=== PATIENT | female | born 1960 | race Caucasian/White ===

== ENCOUNTER 2017-10-06 14:14 | Inpatient (IN) | payer OTHER ==
[2017-10-06] MEDS ORDERED: ASPIRIN 81 MG CHEWABLE TABLET ONE (14:43)
[2017-10-06 14:51] LABS: Absolute Lymphocytes (CBC) 1.7 K/uL (0.7-4.9); Absolute Monocytes 0.6 K/uL (0.1-1.3); Absolute Neutrophil 3.3 K/uL (1.8-8.0); Basophils % 0.2 % (0-1.3); Eosinophils % 2.4 % (0-4.4); Hematocrit 40.2 % (36.0-45.0); Lymphocytes % 29.7 % (15.3-44.8); MCH 30.1 pg (27.0-35.0); MCV 87.8 fL (80-100); MPV 8.7 fL (7.6-11.3); Monocytes % 10.3 % (3.3-12.3); RBC Red Blood Cell Count 4.58 M/uL (3.86-4.86)
[2017-10-06 15:15] LABS: CKMB Creatine Kinase MB 2.3 ng/ml (0.3-4.0); Potassium 3.9 mEq/L (3.6-5.0)
[2017-10-06 15:21] LABS: Albumin 4.1 g/dL (3.2-5.5); Bilirubin Direct 0.1 mg/dL (0-0.2); Bilirubin Total 0.7 mg/dL (0.3-1.2); Protein, Total 7.2 g/dL (6.0-8.3)
[2017-10-06 15:37] LABS: Urine Blood NEGATIVE (NEG); Urine Glucose NEGATIVE (NEG); Urine Protein NEGATIVE (NEG); Urine Specific Gravity 1.015 (1.005-1.030); Urine pH 5.5 (5.0-7.0)
--- NOTE | 2017-10-06 15:45 | RAD REPORT ---
EXAM DESCRIPTION: RAD - Chest Single View - 10/06/2017 3:09 pm CLINICAL HISTORY: Chest pain COMPARISON: October 2015 TECHNIQUE: AP portable chest image was obtained 1441 hours . FINDINGS: Lungs are clear. Heart and vasculature are normal. No measurable pleural effusion and no p neumothorax. No gross bony abnormality seen. No acute aortic findings suspected. IMPRESSION: No acute cardiopulmonary process. No significant interval change.
--- NOTE | 2017-10-06 15:47 | EKG ---
Test Date: 2017-10-06 Test Time: 14:11:13 Assistant Bookkeeper: SYLVESTER MEASUREMENT RESULTS: Intervals: Rate: 79 VT: 154 QRSD: 86 QT: 398 QTc: 456 Salters: P: 51 VT: 154 QRS: -16 T: 82 INTERPRETIVE STATEMENTS: Normal sinus rhythm Possible Left atrial enlargement Anterior infarct, age undetermined Abnormal ECG Compared to ECG 11/14/2015 03:03:06 Sinus bradycardia no longer present Myocardial infarct finding still present Electronically Signed On 10-06-17 15:46:53 CDT by Ye Lainez
[2017-10-06] MEDS ORDERED: NITROGLYCERIN 0.4 MG/TAB SL ONE (16:47)
[2017-10-06] MEDS ORDERED: ACETAMINOPHEN 325 MG TABLET ONE (16:55)
--- NOTE | 2017-10-06 18:01 | RAD REPORT ---
EXAM DESCRIPTION: CT - Chest For Pe Angio - 10/06/2017 5:46 pm CLINICAL HISTORY: Mid sternal chest pain radiating to the back COMPARISON: Chest film same date, CT chest examination July 2015 TECHNIQUE: Dynamically enhanced 3 mm thick images of the chest were obtained during administration o f approximately 150mL Isovue 370 IV contrast. Coronal and oblique reconstruction images were generate d and reviewed. Exam utilizes a protocol to evaluate the pulmonary arterial tree. All CT scans are performed using dose optimization technique as appropriate and may include automated exposure control or mA/KV adjustment according to patient size. FINDINGS: No pulmonary emboli are identified. The aorta as imaged shows no acute or suspicious finding. No pericardial thickening or effusion. No infiltrate or mass in the lung parenchyma. No pleural effusion or pleural thickening. No mediastinal or hilar suspicious masses. No chest wall masses or abnormal axillary lymphadenopathy. No acute or destructive bone finding. IMPRESSION: No pulmonary emboli identified. No other significant or suspicious findings.
[2017-10-06] MEDS ORDERED: METOPROLOL TAR 50 MG TAB ONE (18:20)
[2017-10-06] MEDS ORDERED: ENOXAPARIN 100 MG/ML SYR SQ ONE (18:21)
--- NOTE | 2017-10-06 18:23 | ER ---
Nurse's Notes [facility] Name: Kelsi Bejarano Age: 57 yrs Sex: Female : 1960 Arrival Date: 10/06/2017 Time: 14:08 Bed 23 Private MD: Diagnosis: Chest pain, unspecified Presentation: 10/06 14:08 Presenting complaint: Patient states: mid-sternal chest pain and back pain that began today around 1230. Transition of care: patient was not received from another setting of care. Onset of symptoms was October 06, 2017. Initial Sepsis Screen: Does the patient meet any 2 criteria? No. Patient's initial sepsis screen is negative. Does the patient have a suspected source of infection? No. Patient's initial sepsis screen is negative. Care prior to arrival: None. 14:08 Method Of Arrival: Ambulatory 14:08 Acuity: KATY 2 aa5 Triage Assessment: 14:45 General: Appears in no apparent distress. uncomfortable, well groomed, well developed, kr2 well nourished, Behavior is cooperative, anxious. Pain: Complains of pain in thoracic area and chest Pain currently is 8 out of 10 on a pain scale. Quality of pain is described as burning, Pain began at 1300. Historical: - Allergies: 14:10 BUSPIRONE; 14:10 Cortisone; - Home Meds: 14:12 hydrocodone-acetaminophen 10-325 mg Oral tab [Active]; - PMHx: 14:12 Back pain; "I used to take blood pressure medicine as needed but not anymore"; - PSHx: 14:10 neeraj in right femur; bone fusion right leg; ; spinal surgery; - Immunization history:: Adult Immunizations unknown. - Social history:: Smoking status: Patient/guardian denies using tobacco. Screenin:45 Abuse screen: Denies threats or abuse. Denies injuries from another. Nutritional kr2 screening: No deficits noted. Tuberculosis screening: No symptoms or risk factors identified. Fall Risk None identified. Assessment: 14:38 Pain: Pain radiates to back Pain began 1300 today after eating. Cardiovascular: Heart kr2 tones S1 S2 Capillary refill < 3 seconds in bilateral fingers Patient's skin is warm and dry. Rhythm is sinus rhythm. 14:38 General: Appears in no apparent distress. uncomfortable, well groomed, well developed, kr2 well nourished. Neuro: Level of Consciousness is awake, alert, obeys commands, Oriented to person, place, time, situation. Respiratory: Airway is patent Respiratory effort is even, unlabored, Respiratory pattern is regular, symmetrical. GI: Abdomen is flat, non-distended. : No signs and/or symptoms were reported regarding the genitourinary system. Urine is clear, Denies burning with urination. EENT: Oral mucosa is moist. Derm: Skin is intact, is healthy with good turgor, Skin is pink, warm \\T\\ dry. Musculoskeletal: Circulation, motion, and sensation intact. Vital Signs: 14:08 Pulse 80; Resp 18 S; Temp 98.8(TE); Pulse Ox 95% on R/A; ch 14:09 BP 205 / 106; Weight 92.99 kg (R); Height 5 ft. 6 in. (167.64 cm) (R); Pain 7/10; ch 14:38 BP 196 / 101; Pulse 74; Resp 19; Pulse Ox 96% on R/A; kr2 15:00 BP 174 / 97; Pulse 71; Resp 17; Pulse Ox 99% on R/A; kr2 16:02 BP 171 / 79; Pulse 69; Resp 16; Pulse Ox 98% on R/A; kr2 17:00 BP 179 / 94; Pulse 69; Resp 16; Pulse Ox 96% on R/A; kr2 18:00 BP 181 / 93; Pulse 66; Resp 17; Pulse Ox 97% on R/A; kr2 19:00 BP 161 / 92; Pulse 64; Resp 16; Pulse Ox 97% on R/A; kr2 20:18 BP 174 / 85; Pulse 56; Resp 17; Pulse Ox 97% on R/A; kr2 21:15 BP 178 / 90; Pulse 60; Resp 17; Pulse Ox 100% on R/A; kr2 14:09 Body Mass Index 33.09 (92.99 kg, 167.64 cm) ED Course: 14:08 Patient arrived in ED. ch 14:08 Arm band placed on. ch 14:09 Triage completed. ch 14:14 Eliane Pastrana RN is Primary Nurse. kr2 14:19 Otto Anglin NP is PHCP. pm1 14:19 Julio Cesar Arita MD is Attending Physician. pm1 14:33 EKG done, by sleep lab technologist. reviewed by Julio Cesar Arita MD. dt2 14:40 Patient has correct armband on for positive identification. shelter monitor on. Pulse kr2 ox on. NIBP on. Door closed. Warm blanket given. Head of bed elevated. 14:43 X-ray completed. Portable x-ray completed in exam room. Patient tolerated procedure sw well. 14:45 Inserted saline lock: 20 gauge in left antecubital area, using aseptic technique. Blood kr2 collected. Patient maintains SpO2 saturation greater than 95% on room air. 15:08 XRAY Chest (1 view) In Process Unspecified. EDMS 17:46 CT Chest For PE Angio In Process Unspecified. EDMS 18:21 Naveen Swann MD is Hospitalizing Provider. pm1 21:17 No provider procedures requiring assistance completed. Patient admitted, IV remains in kr2 place. Administered Medications: 14:44 Drug: Aspirin Chewable Tablet 324 mg Route: PO; kr2 16:02 Follow up: Response: No adverse reaction kr2 16:10 Drug: Nitroglycerin 0.4 mg Route: Sublingual; kr2 16:50 Drug: Nitroglycerin 0.4 mg Route: Sublingual; kr2 18:31 Drug: Nitroglycerin 0.4 mg Route: Sublingual; kr2 19:00 Follow up: Response: No adverse reaction kr2 18:31 Drug: Lopressor (metoprolol TARTRATE) 50 mg Route: PO; kr2 19:30 Follow up: Response: No adverse reaction kr2 18:31 Drug: Lovenox 1 mg/kg Route: Sub-Q; Site: right lower abdomen; kr2 19:00 Follow up: Response: No adverse reaction kr2 Outcome: 18:22 Decision to Hospitalize by Provider. pm1 21:18 Admitted to Tele accompanied by tech, family with patient, via wheelchair, room 413, kr2 with chart, Report called to Gail 21:18 Condition: good 21:18 Instructed on the need for admit, Demonstrated understanding of instructions. 21:24 Patient left the ED. kr2 Signatures: Dispatcher [employer] EDMS Haven Spann, JOHN LOPEZ Tati Hull RN RN aa5 Keily Knox Patrick, JANET REAM CUTTER pm1 Eliane Pastrana, RN RN kr2 Melany Stephens dt2 Corrections: (The following items were deleted from the chart) 14:18 14:08 Acuity: KATY 3 ch aa5 16:08 16:07 Abuse screen: Denies threats or abuse. Denies injuries from another. kr2 kr2 16:08 16:07 Nutritional screening: No deficits noted. kr2 kr2 16:08 16:07 Tuberculosis screening: No symptoms or risk factors identified. kr2 kr2 16:08 16:07 Fall Risk None identified. kr2 kr2 21:17 14:38 Cardiovascular: Heart tones S1 S2 Capillary refill < 3 seconds in bilateral kr2 fingers Patient's skin is warm and dry. Rhythm is sinus rhythm kr2
--- NOTE | 2017-10-06 18:24 | EDPHYS ---
Physician Documentation [facility] Name: Kelsi Bejarano Age: 57 yrs Sex: Female : 1960 Arrival Date: 10/06/2017 Time: 14:08 Bed 23 Private MD: ED Physician Julio Cesar Arita HPI: 10/06 14:30 This 57 yrs old Female presents to ER via Ambulatory with complaints of Chest pm1 Pain. 14:30 The patient or guardian reports chest pain that is located primarily in the mid-sternal pm1 area. Onset: at 13:30. The pain does not radiate. Associated signs and symptoms: Pertinent positives: nausea, shortness of breath, Back pain between her shoulder blades, Pertinent negatives: abdominal pain, diaphoresis, palpitations. The chest pain is described as pressure to chest and burning sensation in the back. Duration: The patient or guardian reports a single episode, that is still ongoing. Modifying factors: The symptoms are alleviated by nothing. the symptoms are aggravated by nothing. Severity of pain: in the emergency department the pain is unchanged. The patient has not experienced similar symptoms in the past. The patient has not recently seen a physician, the patient's primary care provider is Dr. Swann. Historical: - Allergies: 14:10 BUSPIRONE; ch 14:10 Cortisone; ch - Home Meds: 14:12 hydrocodone-acetaminophen 10-325 mg Oral tab [Active]; ch - PMHx: 14:12 Back pain; "I used to take blood pressure medicine as needed but not anymore"; ch - PSHx: 14:10 neeraj in right femur; bone fusion right leg; ; spinal surgery; ch - Immunization history:: Adult Immunizations unknown. - Social history:: Smoking status: Patient/guardian denies using tobacco. ROS: 14:30 Constitutional: Negative for fever, chills, and weight loss, Eyes: Negative for injury, pm1 pain, redness, and discharge, ENT: Negative for injury, pain, and discharge, Neck: Negative for injury, pain, and swelling. 14:30 : Negative for injury, bleeding, discharge, and swelling, MS/Extremity: Negative for injury and deformity, Skin: Negative for injury, rash, and discoloration, Neuro: Negative for headache, weakness, numbness, tingling, and seizure. 14:30 Cardiovascular: Positive for chest pain, of the mid-sternal area, Negative for edema, orthopnea, palpitations. 14:30 Respiratory: Positive for shortness of breath. 14:30 Abdomen/GI: Positive for nausea, Negative for abdominal pain, vomiting, diarrhea. 14:30 Back: Positive for of the thoracic area. Exam: 14:30 Constitutional: This is a well developed, well nourished patient who is awake, alert, pm1 and in no acute distress. Head/Face: Normocephalic, atraumatic. Eyes: Pupils equal round and reactive to light, extra-ocular motions intact. Lids and lashes normal. Conjunctiva and sclera are non-icteric and not injected. Cornea within normal limits. Periorbital areas with no swelling, redness, or edema. ENT: Nares patent. No nasal discharge, no septal abnormalities noted. Tympanic membranes are normal and external auditory canals are clear. Oropharynx with no redness, swelling, or masses, exudates, or evidence of obstruction, uvula midline. Mucous membranes moist. Neck: Trachea midline, no thyromegaly or masses palpated, and no cervical lymphadenopathy. Supple, full range of motion without nuchal rigidity, or vertebral point tenderness. No Meningismus. Chest/axilla: Normal chest wall appearance and motion. Nontender with no deformity. No lesions are appreciated. Cardiovascular: Regular rate and rhythm with a normal S1 and S2. No gallops, murmurs, or rubs. No pulse deficits. Respiratory: Lungs have equal breath sounds bilaterally, clear to auscultation and percussion. No rales, rhonchi or wheezes noted. No increased work of breathing, no retractions or nasal flaring. Abdomen/GI: Soft, non-tender, with normal bowel sounds. No distension or tympany. No guarding or rebound. No evidence of tenderness throughout. Back: No spinal tenderness. No costovertebral tenderness. Full range of motion. Skin: Warm, dry with normal turgor. Normal color with no rashes, no lesions, and no evidence of cellulitis. MS/ Extremity: Pulses equal, no cyanosis. Neurovascular intact. Full, normal range of motion. 14:30 Neuro: Orientation: is normal, Mentation: is normal, Motor: is normal, moves all fours, Gait: is steady, at a normal pace, without difficulty. Vital Signs: 14:08 Pulse 80; Resp 18 S; Temp 98.8(TE); Pulse Ox 95% on R/A; ch 14:09 BP 205 / 106; Weight 92.99 kg (R); Height 5 ft. 6 in. (167.64 cm) (R); Pain 7/10; ch 14:38 BP 196 / 101; Pulse 74; Resp 19; Pulse Ox 96% on R/A; kr2 15:00 BP 174 / 97; Pulse 71; Resp 17; Pulse Ox 99% on R/A; kr2 16:02 BP 171 / 79; Pulse 69; Resp 16; Pulse Ox 98% on R/A; kr2 17:00 BP 179 / 94; Pulse 69; Resp 16; Pulse Ox 96% on R/A; kr2 18:00 BP 181 / 93; Pulse 66; Resp 17; Pulse Ox 97% on R/A; kr2 19:00 BP 161 / 92; Pulse 64; Resp 16; Pulse Ox 97% on R/A; kr2 20:18 BP 174 / 85; Pulse 56; Resp 17; Pulse Ox 97% on R/A; kr2 21:15 BP 178 / 90; Pulse 60; Resp 17; Pulse Ox 100% on R/A; kr2 14:09 Body Mass Index 33.09 (92.99 kg, 167.64 cm) ch MDM: 14:26 Patient medically screened. pm1 17:37 Data reviewed: vital signs. Data interpreted: Pulse oximetry: on room air is 98 %. pm1 Interpretation: normal. 17:42 Counseling: I had a detailed discussion with the patient and/or guardian regarding: the pm1 historical points, exam findings, and any diagnostic results supporting the discharge/admit diagnosis, lab results, the need for further work-up and treatment in the hospital. 18:18 Physician consultation: Naveen Swann MD was called at 18:20, was contacted at 18:20, pm1 regarding admission, patient's condition, and will see patient tomorrow, would like consultation with Dr. Caceres, would like further tests performed, Cardiolite stress test if second cardiac enzyme set is negative. 10/06 14:19 Order name: Basic Metabolic Panel; Complete Time: 15:47 pm1 10/06 14:19 Order name: BNP; Complete Time: 15:47 pm1 10/06 14:19 Order name: CBC with Diff; Complete Time: 15:47 pm1 10/06 14:19 Order name: Ckmb; Complete Time: 15:47 pm1 10/06 14:19 Order name: CPK; Complete Time: 15:47 pm1 10/06 14:19 Order name: LFT's; Complete Time: 15:47 pm1 10/06 14:19 Order name: Magnesium; Complete Time: 15:47 pm1 10/06 14:19 Order name: PT-INR; Complete Time: 15:47 pm1 10/06 14:19 Order name: Ptt, Activated; Complete Time: 15:47 pm1 10/06 14:19 Order name: Troponin (emerg Dept Use Only); Complete Time: 15:47 pm1 10/06 14:19 Order name: XRAY Chest (1 view); Complete Time: 15:47 pm1 10/06 15:31 Order name: Urine Dipstick--Ancillary (enter results); Complete Time: 15:47 bd 10/06 16:17 Order name: D-Dimer; Complete Time: 17:18 pm1 10/06 17:17 Order name: CT Chest For PE Angio; Complete Time: 18:02 pm1 10/06 14:19 Order name: Urine Test (obtain specimen); Complete Time: 16:02 pm1 10/06 14:19 Order name: EKG; Complete Time: 14:20 pm1 10/06 14:19 Order name: Cardiac monitoring; Complete Time: 14:37 pm1 10/06 14:19 Order name: EKG - Nurse/Tech; Complete Time: 14:37 pm1 10/06 14:19 Order name: IV Saline Lock; Complete Time: 14:37 pm1 10/06 14:19 Order name: Labs collected and sent; Complete Time: 14:37 pm1 10/06 14:19 Order name: O2 Per Protocol; Complete Time: 14:37 pm1 10/06 14:19 Order name: O2 Sat Monitoring; Complete Time: 14:37 pm1 10/06 14:19 Order name: Urine Dipstick-Ancillary (obtain specimen); Complete Time: 16:02 pm1 Administered Medications: 14:44 Drug: Aspirin Chewable Tablet 324 mg Route: PO; kr2 16:02 Follow up: Response: No adverse reaction kr2 16:10 Drug: Nitroglycerin 0.4 mg Route: Sublingual; kr2 16:50 Drug: Nitroglycerin 0.4 mg Route: Sublingual; kr2 18:31 Drug: Nitroglycerin 0.4 mg Route: Sublingual; kr2 19:00 Follow up: Response: No adverse reaction kr2 18:31 Drug: Lopressor (metoprolol TARTRATE) 50 mg Route: PO; kr2 19:30 Follow up: Response: No adverse reaction kr2 18:31 Drug: Lovenox 1 mg/kg Route: Sub-Q; Site: right lower abdomen; kr2 19:00 Follow up: Response: No adverse reaction kr2 Disposition: 22:39 Co-signature as Attending Physician, Julio Cesar Arita MD I agree with the assessment and kdr plan of care. Disposition: 10/06/17 18:22 Hospitalization ordered by Naveen Swann for Observation. Preliminary diagnosis is Chest pain, unspecified. - Bed requested for Telemetry/MedSurg (observation). - Status is Observation. kr2 - Condition is Stable. - Problem is new. - Symptoms have improved. UTI on Admission? No Signatures: Dispatcher [employer] EDMS Cha Padilla Christina, RN RN Julio Cesar Arita MD MD [facility] Otto Anglin, SHRINKER SHRINKER pm1 Eliane Pastraan RN RN kr2 Corrections: (The following items were deleted from the chart) 18:52 18:22 Hospitalization Ordered by Naveen Swann MD for Observation. Preliminary bd diagnosis is Chest pain, unspecified. Bed requested for Telemetry/MedSurg (observation). Status is Observation. Condition is Stable. Problem is new. Symptoms have improved. UTI on Admission? No. pm1 21:24 18:52 10/06/2017 18:22 Hospitalization Ordered by Naveen Swann MD for Observation. kr2 Preliminary diagnosis is Chest pain, unspecified. Bed requested for Telemetry/MedSurg (observation). Status is Observation. Condition is Stable. Problem is new. Symptoms have improved. UTI on Admission? No. bd
[2017-10-06] MEDS ORDERED: ONDANSETRON 4 MG/2 ML VIAL IV PRN (21:32)
[2017-10-06] MEDS ORDERED: ACETAMINOPHEN 500 MG TAB PO PRN (21:32)
[2017-10-06] MEDS: MORPHINE 4 MG/ML SYR IV PRN (22:23)
[2017-10-07] MEDS: MORPHINE 4 MG/ML SYR IV PRN ×2 (02:24→06:50)
[2017-10-07 04:45] LABS: Absolute Lymphocytes (CBC) 2.3 K/uL (0.7-4.9); Absolute Monocytes 0.5 K/uL (0.1-1.3); Basophils % 0.4 % (0-1.3); Hematocrit 39.4 % (36.0-45.0); MCH 29.7 pg (27.0-35.0); MCV 89.8 fL (80-100); MPV 9.3 fL (7.6-11.3); Monocytes % 8.9 % (3.3-12.3); RBC Red Blood Cell Count 4.39 M/uL (3.86-4.86)
[2017-10-07 05:24] LABS: Potassium 4.4 mEq/L (3.6-5.0)
[2017-10-07] MEDS ORDERED: REGADENOSON 0.4 MG/5 ML SYR IV ONE (07:32)
[2017-10-07] MEDS: HYDROCODONE/APAP 7.5/325 MG TAB PO PRN ×3 (09:13→17:17)
[2017-10-07] MEDS: ASPIRIN EC 81 MG TAB PO SCH (09:13)
--- NOTE | 2017-10-07 11:40 | RAD REPORT ---
EXAM DESCRIPTION: NM - Rest Stress Cardiac Imaging - 10/07/2017 11:26 am CLINICAL HISTORY: Chest pain COMPARISON: None. TECHNIQUE: The patient was administered approximately 10 mCi of Tc 99m Sestamibi prior to resting SP ECT imaging of the heart. The patient was then administered approximately 30 mCi of Tc 99m Sestamibi following exercise or pharmacologic stress. Multiplanar SPECT images were reviewed. FINDINGS: The end diastolic volume is 80 ml, the end systolic volume is 23 ml, and the ejection frac tion is 71 %. Small to moderate area diminished activity is seen in the mid in apex portion of the anterior wall on stress imaging. This is absent or less pronounced on the rest sequencing. No other area of stress pe rfusion abnormality. IMPRESSION: Small to moderate area of stress ischemia anterior wall. Ventricular volume and ejection fraction are normal range.
--- NOTE | 2017-10-07 12:55 | ECHO ---
HEIGHT: 5 ft 6 in WEIGHT: 219 lb 2 oz DATE OF STUDY: 10/07/[address]: Otto Anglin NP 2-DIMENSIONAL: YES M.MODE: YES DOPPLER: YES COLOR FLOW: YES TDS: YES PORTABLE: NO DEFINITY: NO BUBBLE STUDY: NO DIAGNOSIS: CHEST PAIN CARDIAC HISTORY: CATHERIZATION: NO SURGERY: NO PROSTHETIC VALVE: NO PACEMAKER: NO MEASUREMENTS (cm) DIASTOLIC (NORMALS) SYSTOLIC (NORMALS) IVSd 1.3 (0.6-1.2) LA Diam 3.4 (1.9-4.0) LVEF 69% LVIDd 4.0 (3.5-5.7) LVIDs 2.5 (2.0-3.5) %FS 38% LVPWd 1.4 (0.6-1.2) Ao Diam 2.3 (2.0-3.7) 2 DIMENSIONAL ASSESSMENT: RIGHT ATRIUM: NORMAL LEFT ATRIUM: DILATED RIGHT VENTRICLE: NORMAL LEFT VENTRICLE: LEFT VENTRICULAR HYPERTROPHY TRICUSPID VALVE: NORMAL MITRAL VALVE: NORMAL PULMONIC VALVE: NORMAL AORTIC VALVE: NORMAL PERICARDIAL EFFUSION: NONE AORTIC ROOT: NORMAL LEFT VENTRICULAR WALL MOTION: NORMAL. DOPPLER/COLOR FLOW: MILD MITRAL AND TRICUSPID REGURGITATION. NORMAL RIGHT VENTRICULAR SYSTOLIC PRESSURE. COMMENTS: NORMAL LEFT VENTRICULAR EJECTION FRACTION. LEFT VENTRICULAR HYPERTROPHY. DILATED LEFT ATRIUM. MILD MITRAL AND TRICUSPID REGURGITATION. TECHNOLOGIST: MATTHEW SANCHEZ
--- NOTE | 2017-10-07 13:09 | TREADMILL ---
70% H.R.: 113 85% H.R.: 138 90% H.R.: 146 100% H.R.: 162 DX: CHEST PAIN Date of Study: 10/07/17 Ht: 5 6 Wt: 219 lb 2 oz Consulting Physician: LASHAE MEDICATIONS: TYLENOL, NOROC, ASPIRIN, ZOFRAN. HISTORY: 56 YEAR OLD FEMALE WITH COMPLAINTS OF CHEST PAIN. HISTORY OF BACK PAIN. PHYSICIAL EXAMINATION: RESTING B.P.: 186/96 RESTING H.R.: 57 RESTING EKG: ANTERIO MYOCARDIAL INFARCTION, SINUS BRADYCARDIA PROTOCOL: DEYA CARDIOLITE EXERCISE TIME: 8:30 MAXIMUM HEART RATE: 142 % OF PREDICTED B.P. AT PEAK STRESS: 222/75 H.R. AT 1 MINUTE POST EXERCISE: 126 IMPRESSION: DEYA STOPPED DUE TO FATIGUE AND TARGET HEART RATE REACHED. NO CHEST PAIN. OCCASIONAL PREMATURE VENTRICULAR COMPLEXES NOTED DURING RECOVERY. NO VENTRICULAR TACHYCARDIA, NO SUPRA VENTRICULAR TACHYCARDIA. NO ST DEPRESSION DURING STRESS .
[2017-10-07] MEDS: Morphine 2 MG/2 ML SYR IV PRN (20:22)
[2017-10-08] MEDS: Morphine 2 MG/2 ML SYR IV PRN ×5 (00:18→20:22)
--- NOTE | 2017-10-08 01:11 | HP ---
Date of Admission: 10/06/2017 Entrance Complaint: Chest pain. History Of Present Illness: The patient states she was at work, not doing anything unusual for her. She started having central chest pain associated with shortness of breath and pain in the upper port ion of her back, became diaphoretic, so brought to the emergency room where a cardiac evaluation was made. Past History: The patient has no prior cardiac problems. Has had back problems for a number of year s and is on analgesic for this via a pain physician. Family History: Hypertension remotely. Social History: The patient has not had any alcohol for a number of years now and has not smoked rec ently either. Physical Examination: General: The patient is a slightly uncomfortable, slightly overweight, middle-aged female. Vital Signs: Stable vital signs. Head and Neck: Normocephalic. Pupils are equal, round, and reactive to light and accommodation. Fu ndi negative. Trachea midline. Thyroid not palpable. ENT: Negative. Chest: Clear to P and A. Cardiovascular: PMI in midclavicular line. Heart sounds normal. Peripheral pulses are present and equal bilaterally. Abdomen: No organomegaly. Bowel sounds present. Extremities: Good tone and movement bilaterally. Reflexes physiologic. Rectal/Pelvic: Deferred. Impression: Chest pain, probable cardiac origin, hypertension controlled, borderline mild obesity. Plan: The patient will be admitted for cardiac monitoring and cardiac catheterization if the enzymes are negative we ordered and a cardiac consultation will be obtained. HR/MODL Voice ID: [id number]
--- NOTE | 2017-10-08 01:11 | PN ---
Date of Progress Note: 10/07/2017 Subjective: The patient feels much better today. She has minimal amount of discomfort; however, her stress test was positive and therefore being scheduled for a heart catheterization. Depending on th errol results, we will determine the next steps. Her enzymes are normal and vital signs are stable. HR/MODL Voice ID: [id number] Report ID: [id number]
--- NOTE | 2017-10-08 02:05 | CON ---
Date of Consultation: 10/07/[address] Swann for chest pain on 10/06/2017. I saw the patient on 10/07/2017. History Of Present Illness: Ms. Bejarano is a 57-year-old white woman who really has no significant past medical history. Had some fairly worrisome type of chest pain with substernal chest pressure ra diating to the back and shoulders with some nausea and diaphoresis, but no vomiting. Denied PND, ort hopnea, pedal edema, palpitations, or syncope. Her EKG, chest x-ray, troponin, and BNPs was all nega tive. Echo and Cardiolite were pending. Past Medical History: As stated above. Allergies: NONE. Review of Systems: Negative. Social History: Negative. Family History: Positive for heart disease. Medications: At home are none. Physical Examination: Vital Signs: Stable. She was afebrile. HEENT: Negative. Neck: Supple without any bruit, lymphadenopathy, JVD, or thyromegaly. Chest: Clear to auscultation and percussion. Cardiac: Revealed a regular rhythm and rate without any murmurs, gallops, or rubs. Abdomen: Benign. Extremities: Revealed no clubbing, cyanosis, or edema. Diagnostic Data: All normal. Impression And Plan: Ms. Bejarano does not have much in way of risk factors except for her family hi story, but her symptoms are fairly worrisome and could possibly be angina. We will see what her echo cardiogram and a stress Cardiolite show today before making any further decisions. Meanwhile, I woul d definitely keep her on aspirin, beta blockers, Lovenox, and we will see what her workup shows befor e starting on any statin. The case was discussed with Dr. Swann. CARRI/TAWANA Voice ID: [id number] Report ID: [id number]
[2017-10-08 05:39] VITALS: BMI 35.3
[2017-10-08] MEDS ORDERED: NA CHLORIDE 0.9% 1,000 ML ONE (05:47)
[2017-10-08] MEDS ORDERED: ATROPINE SULF 1 MG/10 ML SYR IV ONE (06:07)
[2017-10-08] MEDS ORDERED: NA CHLORIDE 0.9% 500 ML ONE (06:07)
[2017-10-08] MEDS ORDERED: LIDOCAINE 1% 20 ML MDV ONE (06:07)
[2017-10-08] MEDS ORDERED: NA CHLORIDE 0.9% 50 ML ONE (06:08)
[2017-10-08] MEDS: ASPIRIN EC 81 MG TAB PO SCH (06:14)
[2017-10-08] MEDS ORDERED: ONDANSETRON 4 MG/2 ML VIAL ONE (06:45)
[2017-10-08] MEDS ORDERED: FENTANYL CITR 100 MCG/2 ML ONE (06:45)
[2017-10-08] MEDS ORDERED: MIDAZOLAM HCL 2 MG/2 ML INJ ONE ×2 (06:45→07:01)
[2017-10-08] MEDS ORDERED: NITROGLYCERIN 100 MCG/ML SYR (for cath lab use only) IV ONE (07:14)
[2017-10-08] MEDS ORDERED: NITROGLYCERIN/D5W 25 MG/250 ML BTL IV ONE (07:14)
[2017-10-08] MEDS ORDERED: PRASUGREL (EFFIENT) 10 MG TAB ONE (07:29)
[2017-10-08] MEDS ORDERED: ACETAMINOPHEN 325 MG TABLET ONE (07:34)
[2017-10-08] MEDS ORDERED: ZOLPIDEM TARTRATE 10 MG TABLET PO PRN (08:59)
[2017-10-08] MEDS ORDERED: ACETAMINOPHEN 325 MG TABLET PO PRN (09:00)
[2017-10-08] MEDS ORDERED: NA CHLORIDE 0.9% 1,000 ML IV SCH (09:00)
[2017-10-08] MEDS ORDERED: NITROGLYCERIN 0.4 MG/TAB SL PRN (09:00)
[2017-10-08] MEDS: HYDROCODONE/APAP 7.5/325 MG TAB PO PRN ×4 (09:13→23:30)
[2017-10-08] MEDS ORDERED: HYDRALAZINE HCL 20 MG/ML VIAL IV ONE (12:45)
--- NOTE | 2017-10-08 13:13 | P.PN ---
Date of Service: 10/08/17 S: Pt seen and examined at bedside. Doing well overall. Currently status post heart catheterization with stent placement. Complains of having some side pain but other than that no other complaints to offer at this time PE: Vitals Temp Pulse Resp BP Pulse Ox 98.1 F 55 18 193/81 H 96 10/08/17 09:00 10/08/17 12:53 10/08/17 09:00 10/08/17 12:53 10/08/17 04:00 Gen: No acute distress noted. Alert and oriented x3 Cardiac: Regular rate and rhythm. S1-S2 heard normally Chest: No wheezing rales or rhonchi noted normal breath sounds. Abdomen: Nontender nondistended soft positive bowel sounds Extremity: No edema noted positive pulses in all 4 extremities. Cardiac catheterization site C/D/I no hematoma noted Lab: WNL Assessment/Plan: 1. ACS r/o: S/p Cardiac Cath with stent placement. ASA, effient, BB and lipitor on board 2. Obesity BMI 35.9: Calorie intake high 3. HTN: Stable Dispo: DC in 24hr if doing well
[2017-10-08] MEDS ORDERED: DIPHENHYDRAMINE 50 MG/ML VIAL IV ONE (14:03)
[2017-10-08] MEDS: DOCUSATE NA 100 MG CAP PO SCH (20:20)
[2017-10-08] MEDS ORDERED: ATORVASTATIN 80 MG TAB PO SCH (21:00)
[2017-10-09] MEDS: Morphine 2 MG/2 ML SYR IV PRN ×2 (01:28→05:34)
[2017-10-09] MEDS ORDERED: METOPROLOL XL 25 MG TAB PO SCH (06:00)
[2017-10-09 06:01] LABS: Absolute Lymphocytes (CBC) 2.7 K/uL (0.7-4.9); Absolute Monocytes 0.7 K/uL (0.1-1.3); Absolute Neutrophil 4.5 K/uL (1.8-8.0); Basophils % 0.5 % (0-1.3); Eosinophils % 2.5 % (0-4.4); Hematocrit 41.7 % (36.0-45.0); Lymphocytes % 32.7 % (15.3-44.8); MCH 29.9 pg (27.0-35.0); MPV 8.9 fL (7.6-11.3); Monocytes % 8.9 % (3.3-12.3); RBC Red Blood Cell Count 4.64 M/uL (3.86-4.86)
[2017-10-09 06:30] LABS: Potassium 4.5 mEq/L (3.6-5.0)
[2017-10-09] MEDS: HYDROCODONE/APAP 7.5/325 MG TAB PO PRN (07:17)
[2017-10-09 08:38] VITALS: BP 147/77; TEMP 97.2
[2017-10-09] MEDS ORDERED: PRASUGREL (EFFIENT) 10 MG TAB PO SCH (09:00)
[2017-10-09] MEDS ORDERED: ASPIRIN 81 MG CHEWABLE TABLET PO SCH (09:00)
[2017-10-09] MEDS: DOCUSATE NA 100 MG CAP PO SCH (09:11)
[2017-10-09 09:44] VITALS: O2SAT 97
--- NOTE | 2017-10-09 11:13 | P.DS ---
Admission Date: 10/07/17 Discharge Date: 10/09/17 Disposition: ROUTINE DISCHARGE Discharge Condition: GOOD Reason for Admission: Chest pain Consultations: Cardiology Procedures: heart Catherization - Problems (1) Chest pain Onset Date: 10/07/17 Status: Acute Qualifiers: Chest pain type: other chest pain Qualified Code(s): R07.89 - Other chest pain; R07.8 - Other chest pain Brief History of Present Illness: See HPi Hospital Course: Overall during the hospital stay patient remained stable The patient was initially admitted to the hospital for chest pain. Cardiology was consulted who recommended the patient get a heart catheterization done due to high risk here in the hospital. Patient had a cardiac catheterization done day 2 and was found to have blockage and had 2 stent placement. Patient tolerated the procedure well and no acute events were noted after the procedure. Patient at that time was started on metoprolol 50 mg, effient, aspirin, Lipitor 80 mg as well. Patient was then discharged home under stable condition and was asked to follow up with cardiology in about 2 weeks post discharge. Vital Signs/Physical Exam: Temp Pulse Resp BP Pulse Ox 97.2 F 60 18 147/77 H 97 10/09/17 08:00 10/09/17 08:00 10/09/17 08:00 10/09/17 08:00 10/09/17 08:00 General: Alert, In no apparent distress HEENT: Atraumatic, PERRLA, EOMI Neck: Supple, JVD not distended Respiratory: Clear to auscultation bilaterally, Normal air movement Cardiovascular: Regular rate/rhythm, Normal S1 S2 Gastrointestinal: Normal bowel sounds, No tenderness Musculoskeletal: No tenderness Integumentary: No rashes Neurological: Normal speech, Normal tone, Normal affect Lymphatics: No axilla or inguinal lymphadenopathy Laboratory Data at Discharge: WBC 8.2 K/uL (4.3-10.9) D 10/09/17 05:29 Hgb 13.9 g/dL (12.0-15.0) 10/09/17 05:29 Hct 41.7 % (36.0-45.0) 10/09/17 05:29 Plt Count 164 K/uL (152-406) 10/09/17 05:29 PT 11.8 SECONDS (9.5-12.5) 10/06/17 14:35 INR 1.00 10/06/17 14:35 APTT 27.9 SECONDS (24.3-36.9) 10/06/17 14:35 Sodium 139 mEq/L (135-145) 10/09/17 05:29 Potassium 4.5 mEq/L (3.6-5.0) 10/09/17 05:29 BUN 21 mg/dL (6-20) H 10/09/17 05:29 Creatinine 0.93 mg/dL (0.44-1.00) 10/09/17 05:29 Glucose 91 mg/dL (65-120) 10/09/17 05:29 Magnesium 2.0 mg/dL (1.8-2.5) 10/06/17 14:35 Total Bilirubin 0.7 mg/dL (0.3-1.2) 10/06/17 14:35 AST 47 IU/L (10-42) H 10/06/17 14:35 ALT 59 IU/L (10-60) 10/06/17 14:35 Alkaline Phosphatase 66 IU/L (42-121) 10/06/17 14:35 Troponin I < 0.03 ng/mL (<0.03) 10/07/17 03:32 B-Natriuretic Peptide 34 pg/ml (<=100) 10/06/17 14:35 Triglycerides 139 mg/dL (35-160) 10/09/17 05:29 Cholesterol 153 mg/dL (<200) 10/09/17 05:29 HDL Cholesterol 34 mg/dL (29-89) 10/09/17 05:29 Cholesterol/HDL Ratio 4.50 10/09/17 05:29 Home Medications: Hydrocodone/Acetaminophen [Hydrocodone-Acetamin 7.5-325] 325 mg PO BID 10/06/17 Aspirin Chewable [Aspirin Chewable*] 81 mg PO DAILY #30 tab.chew 10/09/17 Atorvastatin Calcium [Lipitor] 80 mg PO BEDTIME #30 tab 10/09/17 Metoprolol Succinate [Toprol Xl] 50 mg PO DAILY #30 tab 10/09/17 Prasugrel Hydrochloride [Effient*] 10 mg PO DAILY #30 tab 10/09/17 New Medications: Aspirin Chewable [Aspirin Chewable*] 81 mg PO DAILY #30 tab.chew Atorvastatin Calcium [Lipitor] 80 mg PO BEDTIME #30 tab Metoprolol Succinate [Toprol Xl] 50 mg PO DAILY #30 tab Prasugrel Hydrochloride [Effient*] 10 mg PO DAILY #30 tab Diet: Regular Activity: Ad kellee Followup: Beau Nunes MD [ACTIVE - CAN ADMIT] - 1 Week Naveen Swann MD [ACTIVE - CAN ADMIT] - 1-2 Weeks (Call to schedule an appointment)
--- NOTE | 2017-10-09 14:25 | PN ---
Date of Progress Note: 10/09/2017 Ms. Bejarano was admitted on 10/07/2017. On 10/08/2017, I performed a heart catheterization on her w ith 2 overlapping stents in the circumflex. Overnight, she did great. She had some numbness in the right groin and some cramps on the right leg, but good distal pulses, good groin pulses. No hematoma . She had no telemetry changes. Her examination was unremarkable. She had no further chest pain. She was going home today on aspirin, Lipitor 80 mg daily, Toprol-XL 50 mg daily and Effient 10 mg heather ly. Prescriptions were given to her. I will see her in the office in the next 2 weeks. CARRI/TAWANA Voice ID: [id number] Report ID: [id number]
--- NOTE | 2017-10-09 21:07 | OP ---
Date of Procedure: 10/08/2017 Surgeon: Beau Nunes MD Procedures: Left heart catheterization, selective coronary arteriogram, primary stent of the proxima l and mid circumflex. Indication: Unstable angina and positive stress test. Procedure In Detail: The patient was brought to the [facility] as inpatient after having a stress test that was positive. Has no previous cardiac history or risk factors that are known except for family history. A 5-H[place] Konger sheath was introduced in the right common femoral artery. Angio-Seal was used to close the case. 6-H[place] Konger catheters, Amena were used to do the angiography for the left main and the right main. The right coronary artery was very dominant with some mild plaquing. LAD had some minimal plaquing. The circumflex had an 80% proximal and 90% mid circumflex. XB 3.5 with side holes guide was used. A [place] wire was used to cross the lesion. I was able to put 2 stents overlapping 2.5 x 16 with 0% residual noted. The patient tolerated the procedure well. There were no complicat ions. Estimated Blood Loss: 5 cc. Final Diagnosis: Coronary artery disease, status post successful primary stent of the proximal and m id circumflex. Postoperative Plan: Plan is for staying overnight. She will be going home on aspirin Lipitor, Topro l, and Effient. She will receive 60 of Effient in the logging [facility] along with Angiomax and aspirin. ___ CARRI/MODL Voice ID: [id number] Report ID: [id number]
== END 2017-10-09 10:56 | disposition home or self-care (01) | DRG 247 ==
LOC: ER 14:14 → ERHOLD 18:24 → 4TH 21:08 → OBSVTOIN 10-07 13:06
PROVIDERS: ADMIT Family Medicine; ATTEND Family Medicine
PROC: 027034Z Dilation of Coronary Artery, One Artery with Drug-eluting Intraluminal Device, Percutaneous Approach (ICD-10-PCS; principal; 2017-10-08)
DX: I25.10 Atherosclerotic heart disease of native coronary artery without angina pectoris (principal); I10 Essential (primary) hypertension; E66.9 Obesity, unspecified; Z68.35 Body mass index [BMI] 35.0-35.9, adult
CPT/HCPCS: 36415; 71045; 71275; 78452; 80048; 80061; 80076; 81003; 82550; 82553; 83735; 83880; 84484; 85025; 85347; 85379; 85610; 85730; 92928; 93005; 93017; 93306; 93454; 96372; 99285; A9500; C1725; C1760; C1877; C1893; G0378; J0360; J0583; J1650; J2250; J2270; J2405; J2785; J3010; J7030; Q9967

== ENCOUNTER 2018-03-25 15:28 | Inpatient (IN) | payer OTHER ==
[2018-03-25] MEDS ORDERED: NA CHLORIDE 0.9% 500 ML ONE (15:47)
[2018-03-25 15:50] LABS: Absolute Lymphocytes (CBC) 1.8 K/uL (0.7-4.9); Absolute Monocytes 0.4 K/uL (0.1-1.3); Absolute Neutrophil 4.1 K/uL (1.8-8.0); Basophils % 1.2 % (0-1.3); Hematocrit 40.3 % (36.0-45.0); Lymphocytes % 27.3 % (15.3-44.8); MCH 30.7 pg (27.0-35.0); MPV 8.9 fL (7.6-11.3); Monocytes % 5.8 % (3.3-12.3); RBC Red Blood Cell Count 4.48 M/uL (3.86-4.86)
[2018-03-25 15:58] LABS: Protime INR 0.99
[2018-03-25 16:40] LABS: ALT/SGPT 50 U/L (12-78); AST/SGOT 33 U/L (15-37); Albumin 3.8 g/dL (3.4-5.0); Alkaline Phosphatase 59 U/L (45-117); BUN Blood Urea Nitrogen 16 mg/dL (7-18); Bicarbonate 28 mmol/L (21-32); Bilirubin Direct 0.2 mg/dL (0-0.2); Bilirubin Total 0.6 mg/dL (0.2-1.0); Glucose Level 186 mg/dL (74-106); Magnesium 2.4 mg/dL (1.8-2.4); NT PRO-BNP 52 pg/mL (<125); Potassium 3.2 mmol/L (3.5-5.1); Protein, Total 7.7 g/dL (6.4-8.2); Sodium Level 137 mmol/L (136-145); Troponin (Emerg Dept Use Only) < 0.02 ng/mL (0.0-0.045)
[2018-03-25] MEDS ORDERED: ACETAMINOPHEN 500 MG TAB ONE (16:44)
--- NOTE | 2018-03-25 16:50 | EDPHYS ---
Physician Documentation [facility] Name: Kelsi Bejarano Age: 57 yrs Sex: Female : 1960 Arrival Date: 03/25/2018 Time: 15:31 Bed 24 Private MD: Naveen Swann ED Physician Shashi Velazquez HPI: 03/25 15:35 This 57 yrs old Female presents to ER via EMS with complaints of Chest Pain > cp 29 y/o. 15:35 The patient or guardian reports chest pain that is located primarily in the anterior cp chest wall. 15:35 Onset: today, at 15:00. The pain does not radiate. Associated signs and symptoms: cp Pertinent positives: headache, shortness of breath, Pertinent negatives: abdominal pain, cough, diaphoresis, lower extremity pain, lower extremity swelling, recent travel, syncope. The chest pain is described as a pressure. Duration: The patient or guardian reports a single episode, that is still ongoing, but improving. Historical: - Allergies: 15:35 BUSPIRONE; rv 15:35 Cortisone; rv - Home Meds: 15:35 hydrocodone-acetaminophen 10-325 mg Oral tab [Active]; rv 16:03 losartan-hydrochlorothiazide 100-25 mg oral tab [Active]; prasugrel oral oral 1 tab rv [Active]; aspirin 81 mg Oral TbEC [Active]; - PMHx: 15:35 "I used to take blood pressure medicine as needed but not anymore"; Back pain; rv - PSHx: 15:35 PCI; rv - Immunization history:: Adult Immunizations up to date. - Social history:: Smoking status: unknown. - Ebola Screening: : Patient negative for fever greater than or equal to 101.5 degrees Fahrenheit, and additional compatible Ebola Virus Disease symptoms Patient denies exposure to infectious person Patient denies travel to an Ebola-affected area in the 21 days before illness onset. ROS: 15:35 Constitutional: Negative for body aches, chills, fever, poor PO intake. cp 15:35 Eyes: Negative for injury, pain, redness, and discharge. cp 15:35 ENT: Negative for drainage from ear(s), ear pain, sore throat, difficulty swallowing, difficulty handling secretions. 15:35 Cardiovascular: Positive for chest pain, Negative for edema, palpitations. 15:35 Respiratory: Positive for shortness of breath, Negative for cough, wheezing. 15:35 Abdomen/GI: Positive for nausea, Negative for abdominal pain, vomiting, diarrhea, constipation, black/tarry stool. 15:35 Back: Negative for pain at rest, pain with movement, radiated pain. 15:35 : Negative for urinary symptoms. 15:35 Skin: Negative for cellulitis, rash. 15:35 Neuro: Positive for headache, Negative for altered mental status, syncope, near syncope, weakness. 15:35 All other systems are negative. Exam: 15:35 ECG was reviewed by the Attending Physician. cp 15:42 Constitutional: The patient appears in no acute distress, alert, awake, cp non-diaphoretic, non-toxic, well developed, well nourished, uncomfortable. 15:42 Head/Face: Normocephalic, atraumatic. Eyes: Pupils equal round and reactive to light, cp extra-ocular motions intact. Lids and lashes normal. Conjunctiva and sclera are non-icteric and not injected. Cornea within normal limits. Periorbital areas with no swelling, redness, or edema. ENT: Nares patent. No nasal discharge, no septal abnormalities noted. Tympanic membranes are normal and external auditory canals are clear. Oropharynx with no redness, swelling, or masses, exudates, or evidence of obstruction, uvula midline. Mucous membranes moist. Neck: Trachea midline, no thyromegaly or masses palpated, and no cervical lymphadenopathy. Supple, full range of motion without nuchal rigidity, or vertebral point tenderness. No Meningismus. Chest/axilla: Normal chest wall appearance and motion. Nontender with no deformity. No lesions are appreciated. 15:42 Cardiovascular: Rate: normal, Rhythm: regular, Pulses: Pulses are 2+ in right radial artery and left radial artery. Edema: is not appreciated, JVD: is not appreciated. 15:42 Respiratory: the patient does not display signs of respiratory distress, Respirations: normal, no use of accessory muscles, no retractions, no splinting, no tachypnea, labored breathing, is not present, Breath sounds: are clear throughout, no decreased breath sounds, no stridor, no wheezing. 15:42 Abdomen/GI: Inspection: abdomen appears normal, Palpation: abdomen is soft and non-tender, in all quadrants. 15:42 Skin: cellulitis, is not appreciated, no rash present. 15:42 Neuro: Orientation: to person, place \\T\\ time. Mentation: is normal, Cerebellar function: is grossly normal, Motor: moves all fours, strength is normal, Sensation: no obvious gross deficits. Vital Signs: 15:36 BP 158 / 101; Pulse 89; Resp 17; Pulse Ox 100% ; Weight 99.79 kg (R); rv 15:57 BP 142 / 97; Pulse 90; Pulse Ox 100% on R/A; rv 16:36 BP 133 / 77; Pulse 72; Pulse Ox 100% on R/A; rv 17:35 BP 133 / 74; Pulse 78; Pulse Ox 100% on R/A; rv 19:08 BP 128 / 76; Pulse 63; Pulse Ox 100% on R/A; rv MDM: 15:33 Patient medically screened. 16:00 Differential diagnosis: abnormal EKG, acute myocardial infarction, acute pericarditis, cp chest wall pain, pericarditis, pleurisy, pneumonia, pneumothorax, pulmonary embolus, stable angina, thoracic aortic disection, unstable angina. 16:41 Physician consultation: Naveen Swann MD was called at 16:41, was contacted at 16:41, regarding admission, to the telemetry unit. patient's condition, would like consultation with Dr. Nunes. 16:45 The patient was not given aspirin in the Emergency Department. Administered by EMS. 16:45 Data reviewed: vital signs, nurses notes, lab test result(s), EKG, radiologic studies, cp plain films. Test interpretation: by ED physician or midlevel provider: ECG, plain radiologic studies. Counseling: I had a detailed discussion with the patient and/or guardian regarding: the historical points, exam findings, and any diagnostic results supporting the discharge/admit diagnosis, lab results, radiology results, the need for further work-up and treatment in the hospital. 03/25 15:33 Order name: Basic Metabolic Panel; Complete Time: 16:41 03/25 16:41 Interpretation: Normal except: K 3.2; GLUC 186; GFR 57. 03/25 15:33 Order name: CBC with Diff; Complete Time: 16:17 03/25 16:18 Interpretation: Reviewed. 03/25 15:33 Order name: LFT's; Complete Time: 16:41 03/25 16:48 Interpretation: Normal except: GLOB 3.9; A/G 1.0. 03/25 15:33 Order name: Magnesium; Complete Time: 16:41 03/25 15:33 Order name: NT PRO-BNP; Complete Time: 16:41 03/25 15:33 Order name: PT-INR; Complete Time: 16:17 cp 03/25 15:33 Order name: Troponin (emerg Dept Use Only); Complete Time: 16:41 03/25 16:48 Interpretation: Within normal limits: TROPED < 0.02. 03/25 17:08 Order name: Basic Metabolic Panel [facility] 03/25 17:08 Order name: Basic Metabolic Panel [facility] 03/25 17:08 Order name: CBC with Automated Diff [facility] 03/25 17:08 Order name: CBC with Automated Diff [facility] 03/25 17:08 Order name: Troponin I [facility] 03/25 17:08 Order name: Troponin I [facility] 03/25 17:08 Order name: Troponin I [facility] 03/25 15:33 Order name: XRAY Chest (1 view); Complete Time: 18:52 03/25 18:52 Interpretation: Report review. 03/25 15:33 Order name: EKG; Complete Time: 15:34 03/25 17:06 Order name: CONS Physician Consult [facility] 03/25 17:08 Order name: Regular [facility] 03/25 17:08 Order name: EKG Electrocardiogram [facility] 03/25 17:08 Order name: EKG Electrocardiogram [facility] 03/25 17:08 Order name: EKG Electrocardiogram [facility] 03/25 17:08 Order name: EKG Electrocardiogram [facility] 03/25 17:17 Order name: Urine Dipstick--Ancillary (enter results) 03/25 17:40 Order name: Urine Dipstick-Ancillary; Complete Time: 18:52 [facility] 03/25 15:33 Order name: Cardiac monitoring; Complete Time: 15:39 03/25 15:33 Order name: EKG - Nurse/Tech; Complete Time: 15:39 03/25 15:33 Order name: IV Saline Lock; Complete Time: 15:39 03/25 15:33 Order name: Labs collected and sent; Complete Time: 15:40 03/25 15:33 Order name: O2 Per Protocol; Complete Time: 15:40 cp 03/25 15:33 Order name: O2 Sat Monitoring; Complete Time: 15:40 cp EC:35 Rate is 89 beats/min. Rhythm is regular. UT interval is normal. QRS interval is normal. cp QT interval is normal. T waves are Inverted in lead aVL. Interpreted by me. Reviewed by me. Administered Medications: 15:45 Drug: NS 0.9% 500 ml Route: IV; Rate: bolus; Site: left forearm; rv 17:06 Follow up: IV Status: Completed infusion rv 15:56 Not Given (Physician Discretion): Metoprolol 25 mg PO once cp 15:56 Not Given (Physician Discretion): Lopressor 5 mg IVP once; Hold for SBP <100 or HR <60. cp 16:41 Drug: Tylenol 1000 mg Route: PO; rv 17:06 Follow up: Response: No adverse reaction rv 17:06 Drug: Lovenox 40 mg Route: Sub-Q; Site: left lower abdomen; rv 18:03 Follow up: Response: No adverse reaction rv 17:06 Drug: Potassium Effervescent Tablet 50 mEq Route: PO; rv 18:03 Follow up: Response: No adverse reaction rv Disposition: 03/25/18 16:49 Hospitalization ordered by Naveen Swann for Observation. Preliminary diagnosis is Chest pain, unspecified. - Bed requested for Telemetry/MedSurg (observation). - Status is Observation. rv - Condition is Stable. - Problem is new. - Symptoms have improved. UTI on Admission? No Addendum: 03/31/2018 07:45 Co-signature as Attending Physician, Shashi Velazquez MD. r n Signatures: Dispatcher [employer] Marli Razo RN RN dw Shashi Velazquez MD MD rn Page, Corey, PA PA cp Lorne Baron, RN RN rv Corrections: (The following items were deleted from the chart) 03/25 18:17 16:49 Hospitalization Ordered by Naveen Swann MD for Observation. Preliminary dw diagnosis is Chest pain, unspecified. Bed requested for Telemetry/MedSurg (observation). Status is Observation. Condition is Stable. Problem is new. Symptoms have improved. UTI on Admission? No. cp 19:48 18:17 03/25/2018 16:49 Hospitalization Ordered by Naveen Swann MD for Observation. rv Preliminary diagnosis is Chest pain, unspecified. Bed requested for Telemetry/MedSurg (observation). Status is Observation. Condition is Stable. Problem is new. Symptoms have improved. UTI on Admission? No. dw
--- NOTE | 2018-03-25 16:50 | ER ---
Nurse's Notes [facility] Name: Kelsi Bejarano Age: 57 yrs Sex: Female : 1960 Arrival Date: 03/25/2018 Time: 15:31 Bed 24 Private MD: Naveen Swann Diagnosis: Chest pain, unspecified Presentation: 03/25 15:32 Presenting complaint: EMS states: "PATIENT IS STRESSED AT WORK. SHE SUDDENLY DEVELOPS rv CHEST PAIN.". Transition of care: patient was not received from another setting of care. Onset of symptoms was March 25, 2018 at 15:00. Risk Assessment: Do you want to hurt yourself or someone else? Patient reports no desire to harm self or others. Initial Sepsis Screen: Does the patient meet any 2 criteria? No. Patient's initial sepsis screen is negative. Does the patient have a suspected source of infection? No. Patient's initial sepsis screen is negative. Care prior to arrival: None. 15:32 Method Of Arrival: EMS: [facility] rv 15:32 Acuity: KATY 3 rv Historical: - Allergies: 15:35 BUSPIRONE; rv 15:35 Cortisone; rv - Home Meds: 15:35 hydrocodone-acetaminophen 10-325 mg Oral tab [Active]; rv 16:03 losartan-hydrochlorothiazide 100-25 mg oral tab [Active]; prasugrel oral oral 1 tab rv [Active]; aspirin 81 mg Oral TbEC [Active]; - PMHx: 15:35 "I used to take blood pressure medicine as needed but not anymore"; Back pain; rv - PSHx: 15:35 PCI; rv - Immunization history:: Adult Immunizations up to date. - Social history:: Smoking status: unknown. - Ebola Screening: : Patient negative for fever greater than or equal to 101.5 degrees Fahrenheit, and additional compatible Ebola Virus Disease symptoms Patient denies exposure to infectious person Patient denies travel to an Ebola-affected area in the 21 days before illness onset. Screenin:37 Abuse screen: Denies threats or abuse. Denies injuries from another. Nutritional rv screening: No deficits noted. Tuberculosis screening: No symptoms or risk factors identified. Fall Risk None identified. Assessment: 15:36 Also complains of shortness of breath. General: Appears in no apparent distress. rv comfortable, Behavior is calm, cooperative. Pain: Pain does not radiate. Pain began suddenly. Neuro: Level of Consciousness is awake, alert, obeys commands, Oriented to person, place, time, situation. Cardiovascular: Capillary refill < 3 seconds Rhythm is regular. Respiratory: Airway is patent. GI: No signs and/or symptoms were reported involving the gastrointestinal system. : No signs and/or symptoms were reported regarding the genitourinary system. EENT: No signs and/or symptoms were reported regarding the EENT system. Derm: Skin is intact. 16:36 Reassessment: Patient appears in no apparent distress at this time. Patient and/or rv family updated on plan of care and expected duration. Pain level reassessed. Patient is alert, oriented x 3, equal unlabored respirations, skin warm/dry/pink. 17:35 Reassessment: Patient appears in no apparent distress at this time. Patient and/or rv family updated on plan of care and expected duration. Pain level reassessed. Patient is alert, oriented x 3, equal unlabored respirations, skin warm/dry/pink. 19:08 Reassessment: Patient appears in no apparent distress at this time. Patient and/or rv family updated on plan of care and expected duration. Pain level reassessed. Patient is alert, oriented x 3, equal unlabored respirations, skin warm/dry/pink. Vital Signs: 15:36 BP 158 / 101; Pulse 89; Resp 17; Pulse Ox 100% ; Weight 99.79 kg (R); rv 15:57 BP 142 / 97; Pulse 90; Pulse Ox 100% on R/A; rv 16:36 BP 133 / 77; Pulse 72; Pulse Ox 100% on R/A; rv 17:35 BP 133 / 74; Pulse 78; Pulse Ox 100% on R/A; rv 19:08 BP 128 / 76; Pulse 63; Pulse Ox 100% on R/A; rv ED Course: 15:31 Patient arrived in ED. rv 15:32 Saroj Sanchez PA is PHCP. cp 15:32 Shashi Velazquez MD is Attending Physician. cp 15:33 Triage completed. rv 15:37 Patient has correct armband on for positive identification. Placed in gown. Bed in low rv position. Side rails up X 1. compliance monitor on. Pulse ox on. NIBP on. 15:38 EKG done, by design technician. reviewed by Saroj SARABIA. sm3 15:38 Maintain EMS IV. Dressing intact. Good blood return noted. Site clean \\T\\ dry. Gauge \\T\\ rv site: 20 LEFT FOREARM. IV is patent, Flushed left forearm. Patient maintains SpO2 saturation greater than 95% on room air. 15:39 Arm band placed on Patient placed Patient notified of wait time Patient's private rv physician notified. EKG completed in triage. Results shown to MD. EKG completed in triage. Results shown to MD. 16:02 XRAY Chest (1 view) In Process Unspecified. EDMS 16:36 Awaiting lab results, Awaiting radiology results. rv 16:37 Naveen Swann MD is Private Physician. cp 16:49 Naveen Swann MD is Hospitalizing Provider. cp 17:35 Awaiting bed assignment. rv 19:30 No provider procedures requiring assistance completed. Patient admitted, IV remains in rv place. intact. Administered Medications: 15:45 Drug: NS 0.9% 500 ml Route: IV; Rate: bolus; Site: left forearm; rv 17:06 Follow up: IV Status: Completed infusion rv 15:56 Not Given (Physician Discretion): Metoprolol 25 mg PO once cp 15:56 Not Given (Physician Discretion): Lopressor 5 mg IVP once; Hold for SBP <100 or HR <60. cp 16:41 Drug: Tylenol 1000 mg Route: PO; rv 17:06 Follow up: Response: No adverse reaction rv 17:06 Drug: Lovenox 40 mg Route: Sub-Q; Site: left lower abdomen; rv 18:03 Follow up: Response: No adverse reaction rv 17:06 Drug: Potassium Effervescent Tablet 50 mEq Route: PO; rv 18:03 Follow up: Response: No adverse reaction rv Outcome: 16:49 Decision to Hospitalize by Provider. cp 19:30 Admitted to Tele accompanied by tech, via wheelchair, room 425, with chart, Report rv called to ESE LOPEZ 19:30 Condition: improved 19:30 Instructed on the need for admit. 19:48 Patient left the ED. rv Signatures: Dispatcher [employer] EDND Saroj Sanchez PA PA cp Montes, Shakira 3 Lorne Baron RN RN rv
--- NOTE | 2018-03-25 17:00 | RAD REPORT ---
EXAM DESCRIPTION: Robert Single View03/25/2018 4:01 pm CLINICAL HISTORY: Chest pain COMPARISON: September 2017 FINDINGS: The lungs appear clear of acute infiltrate. The heart is normal size IMPRESSION: No acute abnormalities displayed
[2018-03-25] MEDS ORDERED: ACETAMINOPHEN 500 MG TAB PO PRN (17:05)
[2018-03-25] MEDS ORDERED: ONDANSETRON 4 MG/2 ML VIAL IV PRN (17:05)
[2018-03-25] MEDS ORDERED: POTASSIUM 25 MEQ EFFERV TAB ONE (17:07)
[2018-03-25] MEDS ORDERED: ENOXAPARIN 40 MG/0.4 ML SQ ONE (17:07)
[2018-03-25 17:39] LABS: Urine Blood NEGATIVE (NEG); Urine Glucose NEGATIVE (NEG); Urine Protein NEGATIVE (NEG); Urine Specific Gravity 1.005 (1.005-1.030); Urine pH 5.5 (5.0-7.0)
[2018-03-25] MEDS: MORPHINE 4 MG/ML SYR IV PRN (20:57)
[2018-03-25 21:17] VITALS: BMI 35.5
[2018-03-26] MEDS: MORPHINE 4 MG/ML SYR IV PRN ×6 (01:06→21:17)
[2018-03-26 06:29] LABS: Potassium 4.2 mmol/L (3.5-5.1)
[2018-03-26 06:37] LABS: Absolute Lymphocytes (CBC) 1.7 K/uL (0.7-4.9); Absolute Monocytes 0.6 K/uL (0.1-1.3); Absolute Neutrophil 2.6 K/uL (1.8-8.0); Basophils % 1.5 % (0-1.3); Hematocrit 37.1 % (36.0-45.0); Lymphocytes % 33.9 % (15.3-44.8); MCH 31.6 pg (27.0-35.0); MCV 91.1 fL (80-100); MPV 9.4 fL (7.6-11.3); Monocytes % 11.5 % (3.3-12.3); RBC Red Blood Cell Count 4.07 M/uL (3.86-4.86)
[2018-03-26] MEDS: ASPIRIN EC 81 MG TAB PO SCH (08:06)
--- NOTE | 2018-03-26 12:27 | EKG ---
Test Date: 2018-03-25 Test Time: 15:32:06 Engraver Wood: AARON MEASUREMENT RESULTS: Intervals: Rate: 89 SD: 160 QRSD: 92 QT: 390 QTc: 474 [place]: P: 51 SD: 160 QRS: -44 T: 71 INTERPRETIVE STATEMENTS: Normal sinus rhythm Possible Left atrial enlargement Left axis deviation Inferior infarct, age undetermined Anterolateral infarct, age undetermined Abnormal ECG Compared to ECG 10/06/2017 14:11:13 Left-axis deviation now present Myocardial infarct finding still present Electronically Signed On 03-26-18 12:25:49 CDT by Beau Nunes
[2018-03-26] MEDS: AMLODIPINE 5 MG TAB PO SCH ×2 (21:00→21:01)
[2018-03-27] MEDS: MORPHINE 4 MG/ML SYR IV PRN ×2 (02:20→06:06)
--- NOTE | 2018-03-27 06:07 | HP ---
Date of Admission: 03/25/2018 Entrance Complaint: Chest pain, generalized. History Of Present Illness: The patient states she was at work when she started to feel funny with s ome discomfort in mid epigastric and central part of her chest. Since she has had a history of coron srikanth artery disease and hypertension, she took her blood pressure that was markedly elevated over 210/ 110. She therefore came to the emergency room. The patient had stents placed at approximately 6 months ago. A long history of hypertension, it is g enerally controlled quite well on medication. She has been on high blood pressure medicine for a num rachel of years. She has some question of compliance she states, however, she has been taking as of lat e. She has also been taking blood thinners and aspirin. States she feels most of the problem is rel ated to the stress at work. She has been under significant stress over the past few weeks and then s he felt this was a major factor. She is in the emergency room, blood pressure was elevated. A cardi ac workup was negative. She was placed on Lovenox and admitted for further evaluation and cardiology consult. Long history of back problems necessitating numerous procedures. States that it is still ongoing. Past History: As above. Family History: Noncontributory. Physical Examination: General: The patient is a moderately obese, middle-aged female, hypertensive. Readings otherwise no rmal, stable vital signs. Head and Neck: Normocephalic. Pupils are equal, reactive to light and accommodation. Fundi negativ e. Trachea midline. Thyroid not palpable. ENT: Negative. Chest: Clear to P and A. Cardiovascular: PMI in midclavicular line. Heart sounds normal. Peripheral pulses present and equa l bilaterally. Abdomen: No organomegaly. Bowel sounds present. Extremities: Good tone and movement bilaterally. Reflexes physiologic. Rectal and Pelvic: Deferred. Impression: Chest pain, unknown etiology; hypertension, poor control; coronary artery disease by his tory. Plan: The patient will be admitted, monitored, seen by Cardiology, determine events that need to be done depending on cardiac workup. HR/MODL Voice ID: [id number]
--- NOTE | 2018-03-27 06:07 | PN ---
Date of Progress Note: 03/26/2018 The patient feels much better today. She has no more chest discomfort. Her blood pressure is stable . However, she states that she has been taking her analgesics in the form of morphine for her back p ain, and her blood pressure is obviously stable so. She is also seen by Cardiology, who felt that sh e would be stable enough and kept her on telemetry overnight that she could be discharged tomorrow, a nd followed up for a stress test on an outpatient basis, I agree with this assessment. HR/MODL Voice ID: [id number] Report ID: [id number]
--- NOTE | 2018-03-27 07:19 | CON ---
Date of Consultation: 03/25/2018 Reason For Consultation: Chest pain and hypertension. History Of Present Illness: Ms. Bejarano is a 57-year-old woman who I met in September of 2017 when she ca me in with a subendocardial AK. Underwent stent of her proximal and distal circumflex. Has done wel l from a cardiovascular standpoint since. Came in with a blood pressure of 214/105, severe headache, chest pain that she described as tightness. Has been under a lot of stress. Has chronic back pain that has been worsening. She is supposed to be taking Effient and Hyzaar at home, but her compliance with medication have been questionable. She is ruled out for an AK already with a normal EKG and no rmal troponin, BNPs, and CPKs, as well as MBs. She is pain-free, but she is still having headache an d she is still hypertensive. Denies nausea, vomiting, diaphoresis, PND, orthopnea, pedal edema, palp itations, or syncope. Review of Systems: Positive for back pain and increased stress. Allergies: CORTISONE, PENICILLIN, AND HYDRALAZINE. Family History: Noncontributory. Social History: Negative. Medications: At home include Effient and Hyzaar. Physical Examination: General: Ms. Bejarano was in mild distress because of back pain, slightly somnolent because of morph ine that she has been receiving for back pain around the clock. No chest pain reported. Vital Signs: Sinus rhythm, afebrile. HEENT: Negative. Neck: Supple without any bruit, lymphadenopathy, JVD, or thyromegaly. Chest: Clear to auscultation and percussion. Cardiac: Revealed a regular rhythm and rate with an S4 gallops. No murmurs or rubs. Abdomen: Benign. Extremities: Revealed no clubbing, cyanosis, or edema. Diagnostic Data: All within normal limits. Impression And Plan: Headache and chest pressure secondary to severe hypertension, poorly controlled . I would continue her Hyzaar. I would consider an antianxiety medication and I will discuss that w uvaldo Swann. We will also add at least a calcium channel lemuel, maybe amlodipine 5 mg daily. She was intolerant to beta blockers after her stent and she is intolerant to statins. I will have he r come by the office and get another stress test in the near future. She can certainly go home whene baljit it is okay with Dr. Swann. CARRI/TAWANA Voice ID: [id number] Report ID: [id number]
[2018-03-27] MEDS: AMLODIPINE 5 MG TAB PO SCH (08:16)
[2018-03-27] MEDS: ASPIRIN EC 81 MG TAB PO SCH (08:16)
[2018-03-27 09:01] VITALS: TEMP 97.7
[2018-03-27 09:27] VITALS: O2SAT 97
[2018-03-27 11:06] VITALS: BP 133/68
== END 2018-03-27 10:45 | disposition home or self-care (01) | DRG 313 ==
LOC: ER 15:28 → ERHOLD 17:02 → 4TH 19:33 → OBSVTOIN 03-26 16:02
PROVIDERS: ADMIT Family Medicine; ATTEND Family Medicine
DX: R07.9 Chest pain, unspecified (principal); I10 Essential (primary) hypertension; I25.10 Atherosclerotic heart disease of native coronary artery without angina pectoris; Z95.5 Presence of coronary angioplasty implant and graft; Z88.0 Allergy status to penicillin; Z88.8 Allergy status to other drugs, medicaments and biological substances; G89.29 Other chronic pain; M54.9 Dorsalgia, unspecified
CPT/HCPCS: 36415; 71045; 80048; 80076; 81003; 83735; 83880; 84484; 85025; 85610; 93005; 96360; 96372; 99285; G0378; J1650

== ENCOUNTER 2018-09-23 20:13 | Emergency (ER) | payer OTHER ==
[2018-09-23 20:48] LABS: Absolute Lymphocytes (CBC) 1.9 K/uL (0.7-4.9); Absolute Monocytes 0.7 K/uL (0.1-1.3); Absolute Neutrophil 5.5 K/uL (1.8-8.0); Basophils % 1.3 % (0-1.3); Eosinophils % 3.4 % (0-4.4); Hematocrit 39.8 % (36.0-45.0); Lymphocytes % 22.1 % (15.3-44.8); MPV 8.8 fL (7.6-11.3); Monocytes % 8.3 % (3.3-12.3); RBC Red Blood Cell Count 4.36 M/uL (3.86-4.86)
[2018-09-23] MEDS ORDERED: NA CHLORIDE 0.9% 1,000 ML ONE (21:00)
[2018-09-23 21:06] LABS: ALT/SGPT 54 U/L (12-78); AST/SGOT 36 U/L (15-37); Albumin 3.9 g/dL (3.4-5.0); Alkaline Phosphatase 70 U/L (45-117); BUN Blood Urea Nitrogen 22 mg/dL (7-18); Bicarbonate 29 mmol/L (21-32); Bilirubin Direct 0.2 mg/dL (0-0.2); Bilirubin Total 0.7 mg/dL (0.2-1.0); Glucose Level 137 mg/dL (74-106); Lipase 114 U/L (73-393); Magnesium 2.2 mg/dL (1.8-2.4); NT PRO-BNP 27 pg/mL (<125); Potassium 3.7 mmol/L (3.5-5.1); Sodium Level 140 mmol/L (136-145); Troponin (Emerg Dept Use Only) < 0.02 ng/mL (0.0-0.045)
--- NOTE | 2018-09-23 21:22 | RAD REPORT ---
EXAM DESCRIPTION: Robert Single View09/23/2018 9:05 pm CLINICAL HISTORY: Chest pain COMPARISON: 07/19 FINDINGS: The lungs appear clear of acute infiltrate. The heart is normal size IMPRESSION: No acute abnormalities displayed
--- NOTE | 2018-09-23 22:15 | ER ---
Nurse's Notes [facility] Name: Kelsi Bejarano Age: 58 yrs Sex: Female : 1960 Arrival Date: 09/23/2018 Time: 20:18 Bed 2 Private MD: Diagnosis: Weakness;Acute pharyngitis;Urinary tract infection, site not specified Presentation: 09/23 20:19 Presenting complaint: EMS states: pt at [facility] all day in heat, c/o throat pain, ak1 dry mouth and upper back pain. pt hx ID "few years ago" pt A\\T\\OX4 in ER2. pt denies ETOH but stated she did take her night dose of Mcdavid . pt denies N/V. pt denies chest pain. Transition of care: patient was not received from another setting of care. Onset of symptoms was September 23, 2018. Risk Assessment: Do you want to hurt yourself or someone else? Patient reports no desire to harm self or others. Care prior to arrival: None. 20:19 Method Of Arrival: EMS: [facility] ak1 20:19 Acuity: KATY 3 ak1 22:12 Initial Sepsis Screen: Does the patient have a suspected source of infection?. ao 22:34 Initial Sepsis Screen: Does the patient meet any 2 criteria? No. Patient's initial ak1 sepsis screen is negative. Triage Assessment: 20:23 General: Appears in no apparent distress. Behavior is calm, cooperative. Pain: ak1 Complains of pain in thoracic area, throat. EENT: Throat is clear is reddened. Neuro: No deficits noted. Cardiovascular: Denies chest pain, lightheadedness, nausea, shortness of breath. Respiratory: No deficits noted. GI: No signs and/or symptoms were reported involving the gastrointestinal system. : No signs and/or symptoms were reported regarding the genitourinary system. Derm: No signs and/or symptoms reported regarding the dermatologic system. Musculoskeletal: Reports upper back pain. Historical: - Allergies: 20:23 BUSPIRONE; ak1 20:23 Cortisone; ak1 - Home Meds: 20:23 aspirin 81 mg Oral TbEC [Active]; hydrocodone-acetaminophen 10-325 mg Oral tab ak1 [Active]; losartan-hydrochlorothiazide 100-25 mg Oral tab [Active]; prasugrel Oral 1 tab [Active]; amlodipine oral [Active]; - PMHx: 20:23 Back pain; ID; Hypertension; ak1 - PSHx: 20:23 PCI; Heart stents; back sx; right femur sx X3; ; ak1 - Immunization history:: Adult Immunizations unknown. - Social history:: Smoking status: Patient/guardian denies using tobacco, Patient/guardian denies using alcohol. - Ebola Screening: : No symptoms or risks identified at this time. - Family history:: not pertinent. Screenin:25 Abuse screen: Denies threats or abuse. Denies injuries from another. Nutritional ak1 screening: No deficits noted. Tuberculosis screening: No symptoms or risk factors identified. Fall Risk None identified. Assessment: 20:58 Reassessment: Patient appears in no apparent distress at this time. No changes from ak1 previously documented assessment. Patient and/or family updated on plan of care and expected duration. Pain level reassessed. Patient is alert, oriented x 3, equal unlabored respirations, skin warm/dry/pink. pt tolerating ice chips. family at bedside. will continue to monitor. 21:50 Reassessment: Patient appears in no apparent distress at this time. No changes from ak1 previously documented assessment. Patient and/or family updated on plan of care and expected duration. Pain level reassessed. Patient is alert, oriented x 3, equal unlabored respirations, skin warm/dry/pink. Patient states feeling better. Patient states symptoms have improved. Vital Signs: 20:23 BP 157 / 82; Pulse 88; Resp 19; Temp 98.4(O); Pulse Ox 99% on R/A; Weight 90.72 kg (R); ak1 Height 5 ft. 6 in. (167.64 cm) (R); Pain 2/10; 20:52 BP 142 / 68 RA; Pulse 80 RA; Resp 18; Pulse Ox 98% on R/A; oe 21:50 BP 130 / 71; Pulse 80; Resp 16; Temp 98.4; Pulse Ox 98% on R/A; Pain 0/10; ak1 22:34 BP 124 / 66; Pulse 80; Resp 20; Temp 98.4; Pulse Ox 97% on R/A; Pain 0/10; ak1 20:23 Body Mass Index 32.28 (90.72 kg, 167.64 cm) ak1 ED Course: 20:18 Patient arrived in ED. am2 20:21 Triage completed. ak1 20:23 Arm band placed on Patient placed in an exam room, on a stretcher, Patient notified of ak1 wait time. 20:23 Patient has correct armband on for positive identification. Placed in gown. Bed in low ak1 position. Call light in reach. Side rails up X2. Adult w/ patient. youth nutritional monitor on. Pulse ox on. NIBP on. 20:25 Kishor Duke, RN is Primary Nurse. ao 20:25 EKG done, by ED staff. ak1 20:25 Inserted saline lock: 20 gauge in right antecubital area, using aseptic technique. ao 20:28 Saroj Mendoza MD is Attending Physician. mary 21:04 XRAY Chest (1 view) In Process Unspecified. EDMS 21:49 Repeat lab(s) drawn. by me, sent to lab. ak1 22:14 Beau Nunes MD is Referral Physician. mary 22:33 No provider procedures requiring assistance completed. IV discontinued, intact, ak1 bleeding controlled, No redness/swelling at site. Pressure dressing applied. Administered Medications: 20:52 Drug: NS 0.9% 1000 ml Route: IV; Rate: 1 bolus; Site: right antecubital; ak1 21:49 Follow up: IV Status: Completed infusion; IV Intake: 1000ml ak1 22:22 Not Given (Duplicate Order): Rocephin 1 grams IV at per protocol once; Given slow IV mary push per pharmacy instructions 22:22 Not Given (Duplicate Order): Augmentin 875 mg PO once mary 22:32 Drug: KeFLEX 500 mg Route: PO; ak1 22:33 Follow up: Response: No adverse reaction ak1 Intake: 21:49 IV: 1000ml; Total: 1000ml. ak1 Outcome: 22:14 Discharge ordered by . mary 22:34 Discharged to home ambulatory, with family. ak1 22:34 Condition: good 22:34 Discharge instructions given to patient, family, Instructed on discharge instructions, follow up and referral plans. no drinking with medication, no driving heavy equipment, medication usage, Demonstrated understanding of instructions, follow-up care, medications, Prescriptions given X 1. 22:35 Patient left the ED. ak1 Signatures: Dispatcher [employer] EDMS Saroj Mendoza MD MD cha Krenek, Amber, RN RN ak1 Kishor Duke RN RN ao Espinosa, Orlando oe Moreno, Amanda am2
--- NOTE | 2018-09-23 22:15 | EDPHYS ---
Physician Documentation [facility] Name: Kelsi Bejarano Age: 58 yrs Sex: Female : 1960 Arrival Date: 09/23/2018 Time: 20:18 Bed 2 Private MD: ED Physician Saroj Mendoza HPI: 09/23 20:39 This 58 yrs old Female presents to ER via EMS with complaints of back pain, mary sore throat and weakness. 20:39 The patient presents with pain that is acute, with no known mechanism of injury. The mary symptoms are located in the thoracic area. Onset: The symptoms/episode began/occurred today. The pain does not radiate. Associated signs and symptoms: The patient has no apparent associated signs or symptoms. Modifying factors: The patient symptoms are alleviated by nothing, the patient symptoms are aggravated by nothing. Severity of symptoms: At their worst the symptoms were mild, in the emergency department the symptoms have improved, markedly. The patient has not experienced similar symptoms in the past. Historical: - Allergies: 20:23 BUSPIRONE; ak1 20:23 Cortisone; ak1 - Home Meds: 20:23 aspirin 81 mg Oral TbEC [Active]; hydrocodone-acetaminophen 10-325 mg Oral tab ak1 [Active]; losartan-hydrochlorothiazide 100-25 mg Oral tab [Active]; prasugrel Oral 1 tab [Active]; amlodipine oral [Active]; - PMHx: 20:23 Back pain; OK; Hypertension; ak1 - PSHx: 20:23 PCI; Heart stents; back sx; right femur sx X3; ; ak1 - Immunization history:: Adult Immunizations unknown. - Social history:: Smoking status: Patient/guardian denies using tobacco, Patient/guardian denies using alcohol. - Ebola Screening: : No symptoms or risks identified at this time. - Family history:: not pertinent. ROS: 20:39 Constitutional: Negative for fever, chills, and weight loss, Eyes: Negative for injury, mary pain, redness, and discharge, ENT: Negative for injury, pain, and discharge, Neck: Negative for injury, pain, and swelling, Respiratory: Negative for shortness of breath, cough, wheezing, and pleuritic chest pain, Abdomen/GI: Negative for abdominal pain, nausea, vomiting, diarrhea, and constipation, Back: Negative for injury and pain, : Negative for injury, bleeding, discharge, and swelling, MS/Extremity: Negative for injury and deformity, Skin: Negative for injury, rash, and discoloration, Neuro: Negative for headache, weakness, numbness, tingling, and seizure, Psych: Negative for depression, anxiety, suicide ideation, homicidal ideation, and hallucinations, Allergy/Immunology: Negative for hives, rash, and allergies, Endocrine: Negative for neck swelling, polydipsia, polyuria, polyphagia, and marked weight changes, Hematologic/Lymphatic: Negative for swollen nodes, abnormal bleeding, and unusual bruising. 20:39 Cardiovascular: Negative for chest pain. 20:39 MS/extremity: Negative for acute changes, pain, swelling, tenderness. Exam: 20:39 Constitutional: This is a well developed, well nourished patient who is awake, alert, mary and in no acute distress. Head/Face: Normocephalic, atraumatic. Eyes: Pupils equal round and reactive to light, extra-ocular motions intact. Lids and lashes normal. Conjunctiva and sclera are non-icteric and not injected. Cornea within normal limits. Periorbital areas with no swelling, redness, or edema. ENT: Nares patent. No nasal discharge, no septal abnormalities noted. Tympanic membranes are normal and external auditory canals are clear. Oropharynx with no redness, swelling, or masses, exudates, or evidence of obstruction, uvula midline. Mucous membranes moist. Neck: Trachea midline, no thyromegaly or masses palpated, and no cervical lymphadenopathy. Supple, full range of motion without nuchal rigidity, or vertebral point tenderness. No Meningismus. Chest/axilla: Normal chest wall appearance and motion. Nontender with no deformity. No lesions are appreciated. Cardiovascular: Regular rate and rhythm with a normal S1 and S2. No gallops, murmurs, or rubs. Normal PMI, no JVD. No pulse deficits. Respiratory: Lungs have equal breath sounds bilaterally, clear to auscultation and percussion. No rales, rhonchi or wheezes noted. No increased work of breathing, no retractions or nasal flaring. Abdomen/GI: Soft, non-tender, with normal bowel sounds. No distension or tympany. No guarding or rebound. No evidence of tenderness throughout. Back: No spinal tenderness. No costovertebral tenderness. Full range of motion. Skin: Warm, dry with normal turgor. Normal color with no rashes, no lesions, and no evidence of cellulitis. MS/ Extremity: Pulses equal, no cyanosis. Neurovascular intact. Full, normal range of motion. Neuro: Awake and alert, GCS 15, oriented to person, place, time, and situation. Cranial nerves II-XII grossly intact. Motor strength 5/5 in all extremities. Sensory grossly intact. Cerebellar exam normal. Normal gait. Psych: Awake, alert, with orientation to person, place and time. Behavior, mood, and affect are within normal limits. 20:39 Musculoskeletal/extremity: ROM: no acute changes, intact in all extremities, full active range of motion, full passive range of motion, Circulation is intact in all extremities. Sensation intact. Compartment Syndrome exam of affected extremity: is normal. DVT Exam: No signs of deep vein thrombosis. no pain, no swelling, no tenderness, negative Homans' sign noted on exam, no appreciated bluish discoloration, no erythema, no increased warmth. Vital Signs: 20:23 BP 157 / 82; Pulse 88; Resp 19; Temp 98.4(O); Pulse Ox 99% on R/A; Weight 90.72 kg (R); ak1 Height 5 ft. 6 in. (167.64 cm) (R); Pain 2/10; 20:52 BP 142 / 68 RA; Pulse 80 RA; Resp 18; Pulse Ox 98% on R/A; oe 21:50 BP 130 / 71; Pulse 80; Resp 16; Temp 98.4; Pulse Ox 98% on R/A; Pain 0/10; ak1 22:34 BP 124 / 66; Pulse 80; Resp 20; Temp 98.4; Pulse Ox 97% on R/A; Pain 0/10; ak1 20:23 Body Mass Index 32.28 (90.72 kg, 167.64 cm) ak1 MDM: 20:28 Patient medically screened. [facility] 20:44 Data reviewed: vital signs, nurses notes, lab test result(s), EKG, radiologic studies, mary plain films. 09/23 20:27 Order name: Basic Metabolic Panel; Complete Time: 21:17 ak1 09/23 20:27 Order name: CBC with Diff; Complete Time: 21:17 [facility] 09/23 20:27 Order name: LFT's; Complete Time: 21:17 [facility] 09/23 20:27 Order name: Magnesium; Complete Time: 21:17 [facility] 09/23 20:27 Order name: NT PRO-BNP; Complete Time: 21:17 [facility] 09/23 20:27 Order name: PT-INR; Complete Time: 21:17 [facility] 09/23 20:27 Order name: Troponin (emerg Dept Use Only); Complete Time: 21:17 [facility] 09/23 20:27 Order name: Strep; Complete Time: 21:52 [facility] 09/23 20:39 Order name: Lipase [facility] 09/23 20:45 Order name: Lipase; Complete Time: 21:17 [facility] 09/23 21:17 Order name: Troponin I; Complete Time: 22:13 [facility] 09/23 21:29 Order name: Throat Culture [facility] 09/23 22:13 Order name: Urine Culture [facility] 09/23 20:27 Order name: XRAY Chest (1 view); Complete Time: 21:52 [facility] 09/23 20:27 Order name: EKG; Complete Time: 20:28 [facility] 09/23 20:27 Order name: Cardiac monitoring; Complete Time: 20:43 [facility] 09/23 20:27 Order name: EKG - Nurse/Tech; Complete Time: 20:42 de09/23 20:27 Order name: IV Saline Lock; Complete Time: 20:43 de09/23 20:27 Order name: Labs collected and sent; Complete Time: 20:43 [facility] 09/23 20:27 Order name: O2 Per Protocol; Complete Time: 20:43 [facility] 09/23 20:27 Order name: O2 Sat Monitoring; Complete Time: 20:43 [facility] 09/23 20:27 Order name: Urine Dipstick-Ancillary (obtain specimen); Complete Time: 22:15 [facility] 09/23 20:39 Order name: Bilateral blood pressure; Complete Time: 20:58 [facility] Administered Medications: 20:52 Drug: NS 0.9% 1000 ml Route: IV; Rate: 1 bolus; Site: right antecubital; ak1 21:49 Follow up: IV Status: Completed infusion; IV Intake: 1000ml ak 22:22 Not Given (Duplicate Order): Rocephin 1 grams IV at per protocol once; Given slow IV mary push per pharmacy instructions 22:22 Not Given (Duplicate Order): Augmentin 875 mg PO once mary 22:32 Drug: KeFLEX 500 mg Route: PO; ak1 22:33 Follow up: Response: No adverse reaction ak1 Disposition: 09/23/18 22:14 Discharged to Home. Impression: Weakness, Acute pharyngitis, Urinary tract infection, site not specified. - Condition is Stable. - Discharge Instructions: Dysuria, Pharyngitis, Urinary Tract Infection, Adult, Weakness, Fatigue, Urinary Tract Infection, Adult, Pnsq-fg-Fudi, Pharyngitis, Xteb-nl-Hoav, Weakness, Puak-kb-Vqsc, Sore Throat, Dorb-gf-Kbzc. - Prescriptions for Keflex 500 mg Oral Capsule - take 1 capsule by ORAL route every 6 hours for 10 days; 28 capsule. - Work release form, Medication Reconciliation Form, Thank You Letter, Antibiotic Education, Prescription Opioid Use form. - Follow up: Private Physician; When: 2 - 3 days; Reason: Recheck today's complaints, Continuance of care, Re-evaluation by your physician. Follow up: Beau Nunes; When: 2 - 3 days; Reason: Recheck today's complaints, Continuance of care, Re-evaluation by your physician. - Problem is new. - Symptoms have improved. Signatures: Dispatcher [employer] [facility] Saroj Mendoza MD MD cha Krenek, Amber, RN RN ak1 Corrections: (The following items were deleted from the chart) 20:45 20:39 Lipase ordered. [facility] 22:35 22:14 09/23/2018 22:14 Discharged to Home. Impression: Weakness; Acute pharyngitis; ak1 Urinary tract infection, site not specified. Condition is Stable. Discharge Instructions: Pharyngitis, Weakness, Fatigue, Pharyngitis, Xzge-mi-Uski, Weakness, Iwrp-wn-Eetk, Sore Throat, Vtvh-ot-Sqsq. Prescriptions for Augmentin 875-125 mg Oral Tablet - take 1 tablet by ORAL route every 12 hours for 10 days; 14 tablet. and Forms are Work release form, Medication Reconciliation Form, Thank You Letter, Antibiotic Education, Prescription Opioid Use. Follow up: Private Physician; When: 2 - 3 days; Reason: Recheck today's complaints, Continuance of care, Re-evaluation by your physician. Follow up: Beau Nunes; When: 2 - 3 days; Reason: Recheck today's complaints, Continuance of care, Re-evaluation by your physician. Problem is new. Symptoms have improved. mary
[2018-09-23 22:40] VITALS: TEMP 98.4
[2018-09-23] MEDS ORDERED: CEPHALEXIN 250 MG CAP ONE (22:40)
[2018-09-23 22:45] VITALS: BP 124/66; O2SAT 97
--- NOTE | 2018-09-24 10:29 | EKG ---
Test Date: 2018-09-23 Test Time: 20:26:43 [employer]el Sticker Operator: YARI MEASUREMENT RESULTS: Intervals: Rate: 83 OR: 164 QRSD: 90 QT: 370 QTc: 434 [place]: P: 49 OR: 164 QRS: 15 T: 66 INTERPRETIVE STATEMENTS: Normal sinus rhythm Possible Left atrial enlargement Possible Anterior infarct, age undetermined Abnormal ECG Compared to ECG 03/25/2018 15:32:06 Left-axis deviation no longer present Myocardial infarct finding still present Electronically Signed On 09-24-18 10:28:10 CDT by Beau Nunes
== END 2018-09-23 22:35 | disposition home or self-care (01) ==
LOC: ER 20:13
DX: N39.0 Urinary tract infection, site not specified (principal); J02.9 Acute pharyngitis, unspecified; R53.1 Weakness; I10 Essential (primary) hypertension
CPT/HCPCS: 36415; 71045; 80048; 80076; 83690; 83735; 83880; 84484; 85025; 85610; 87070; 87081; 87086; 87088; 93005; 96360; 99285; J7030

== ENCOUNTER 2024-05-26 08:19 | Emergency (ER) | payer OTHER ==
[2024-05-26] MEDS ORDERED: NA CHLORIDE 0.9% 1,000 ML ONE (08:44)
[2024-05-26] MEDS ORDERED: DIPHENHYDRAMINE 50 MG/ML VIAL ONE (08:44)
[2024-05-26] MEDS ORDERED: METOCLOPRAMIDE 10 MG/2mL INJ ONE (08:44)
[2024-05-26 09:04] LABS: Absolute Lymphocytes (CBC) 0.3 K/uL (0.7-4.9); Absolute Monocytes 0.1 K/uL (0.1-1.3); Absolute Neutrophil 4.8 K/uL (1.8-8.0); Basophils % 0.5 % (0-1.3); Eosinophils % 0.5 % (0-4.4); Hematocrit 43.4 % (36.0-45.0); Hemoglobin 14.7 g/dL (12.0-15.0); Lymphocytes % 6.5 % (15.3-44.8); MCH 29.7 pg (27.0-35.0); MCHC 33.8 g/dL (32.0-36.0); MCV 87.7 fL (80-100); MPV 7.9 fL (7.6-11.3); Monocytes % 1.4 % (3.3-12.3); Neutrophils % 91.1 % (41.7-73.7); Nucleated Red Blood Cells % 0.2 % (0-0); Platelets 141 thou/uL (152-406); RBC Red Blood Cell Count 4.94 M/uL (3.86-4.86); Red Cell Distribution Width 13.8 % (12.1-15.2)
[2024-05-26 09:10] LABS: PT Prothrombin Time 12.3 SECONDS (9.4-12.5); Protime INR 1.1
--- NOTE | 2024-05-26 09:24 | RAD REPORT ---
EXAM: Chest Single View HISTORY: COUGH COMPARISON: None. FINDINGS: LUNGS/PLEURA: The lungs are clear. No pleural effusions or pneumothorax. No pulmonary edema. MEDIASTINUM: The mediastinal silhouette is within normal limits. CARDIAC: Within normal limits. UPPER ABDOMEN: No significant abnormality. BONES: No acute fracture. ACDF in the cervical spine. LINES/TUBES/OTHER: N/A IMPRESSION: No evidence of acute cardiopulmonary disease.
[2024-05-26 09:25] LABS: Albumin 3.7 g/dL (3.4-5.0); Albumin/Globulin Ratio 0.9 (1.1-1.8); Anion Gap 10.5 mEq/L (5.0-15.0); Bilirubin Total 1.8 mg/dL (0.2-1.0); Globulin 4.2 g/dL (2.3-3.5); Potassium 3.5 mEq/L (3.5-5.1); Protein, Total 7.9 g/dL (6.4-8.2)
[2024-05-26 09:31] LABS: Specific Gravity 1.012 (1.005-1.030); Sqamous Epithelial <5 /HPF (None Seen); Urine Bacteria None Seen /HPF (<20); Urine Bilirubin NEGATIVE (Negative); Urine Blood Negative (Negative); Urine Clarity Clear (Clear); Urine Color Light-Yellow (Yellow); Urine Culture Reflex Order NOT NEEDED; Urine Glucose NEGATIVE (Negative); Urine Ketones NEGATIVE (Negative); Urine Microscopic Reflex YN ORDER UMIC; Urine Nitrite NEGATIVE (Negative); Urine Protein NEGATIVE (Negative); Urine RBC <5 /HPF (None Seen); Urine Urobilinogen Normal (Normal); Urine WBC None Seen /HPF (<5); Urine pH 5.5 (5.0-7.0)
[2024-05-26 09:32] LABS: SARS-CoV-2 Antigen CONTROL BLUE LINE VIS/BG OK; SARS-CoV-2 Antigen Rapid Res Negative (Negative)
[2024-05-26] MEDS ORDERED: NA CHLORIDE 0.9% 2,000 ML ONE (09:34)
[2024-05-26 10:05] LABS: Band Neutrophils 1 % (0-1); Blood Morphology Comment NOT SEEN (NOT SEEN); Differential Total Cells Count 100; Lymphocytes 5 % (15-42); Monocytes 2 % (0-10); Platelet Estimate DECR; Segmented Neutrophils 92 % (40-80)
--- NOTE | 2024-05-26 10:17 | RAD REPORT ---
EXAMINATION: CT HEAD WITHOUT CONTRAST CLINICAL INDICATION: Female, 63 years old.DIZZINESS TECHNIQUE: Axial CT images from the skull base to the vertex without intravenous contrast. Coronal an d sagittal reformatted images were created from the data set. One or more of the following dose reduction techniques were used: Automated exposure control, adjustment of the mA and/or kV according to patient size, and/or iterative reconstruction. Unless otherwise specified, incidental findings do not require dedicated imaging follow-up. [id number]. COMPARISON: No prior exam. FINDINGS: INTRACRANIAL: No acute intracranial hemorrhage. No hydrocephalus. No mass effect or midline shift. Mi ld chronic small vessel ischemic changes.small focus of matter hypoattenuation the left basal ganglia. VASCULATURE: No visualized abnormalities in the arteries or dural venous sinuses. SCALP/SKULL: No significant soft tissue or osseous abnormalities. SINUSES: The visualized paranasal sinuses and mastoid air cells are predominantly clear. IMPRESSION: Age-indeterminate, but possibly acute, left basal ganglia lacunar infarct. No acute large vascular te rritory infarct or intracranial hemorrhage. Consider MRI for further evaluation.
--- NOTE | 2024-05-26 10:18 | RAD REPORT ---
EXAMINATION: CTA NECK CLINICAL INDICATION: Female, 63 years old. dizziness TECHNIQUE: Axial CT images were obtained from the aortic arch to the skull base after intravenous con trast utilizing angiographic protocol with 3D post-processing (maximum intensity projection images, volume rendered images and/or shaded surface rendered images). One or more of the following dose redu ction techniques were used: Automated exposure control, adjustment of the mA and/or kV according to patient size, and/or iterative reconstruction. Unless otherwise specified, incidental findings do not require dedicated imaging follow-up. [id number]. NASCET criteria used. Mild 0-49% stenosis Moderate 50-69% stenosis Severe 70-99% stenosis COMPARISON: No prior exam. FINDINGS: AORTA: The imaged aortic arch is normal. CCA: The common carotid arteries are patent and normal in caliber. ICA/ECA: Mild to moderate calcified plaque at the left proximal ICA. No flow-limiting stenosis involv ing either internal carotid arteries or external carotid arteries. VERTEBRAL: The cervical vertebral arteries are patent and codominant. SOFT TISSUE: No significant neck soft tissue abnormalities. The visualized lung apices are clear. 3D images confirm these findings. IMPRESSION: No flow-limiting stenosis or dissection identified within neck.
--- NOTE | 2024-05-26 10:19 | RAD REPORT ---
EXAMINATION: CTA HEAD CLINICAL INDICATION: Female, 63 years old. DIZZINESS TECHNIQUE: Axial CT images were obtained through the head after intravenous contrast utilizing angiog raphic protocol with 3D post-processing (maximum intensity projection images, volume rendered images and/or shaded surface rendered images). One or more of the following dose reduction technique s were used: Automated exposure control, adjustment of the mA and/or kV according to patient size, and/or iterative reconstruction. Unless otherwise specified, incidental findings do not require dedic ated imaging follow-up. COMPARISON: No prior exam. FINDINGS: ICA: The petrous, cavernous, and supraclinoid segments of the bilateral internal carotid arteries are normal. The ophthalmic artery origins are visualized and normal. The posterior communicating arteries are patent. MARIELA: Anterior cerebral arteries are normal bilaterally. The anterior communicating artery is patent. MCA: Middle cerebral arteries are normal bilaterally. TERMITE TREATER: Posterior cerebral arteries are normal bilaterally. Vertebrobasilar: The vertebral arteries are patent. The basilar artery is normal in appearance. 3D images confirm these findings. IMPRESSION: No occlusion, aneurysm, or hemodynamically significant stenosis identified.
--- NOTE | 2024-05-26 10:24 | RAD REPORT ---
EXAMINATION: CT ABDOMEN AND PELVIS WITH CONTRAST CLINICAL INDICATION: Female, 63 years old.ABD PAIN TECHNIQUE: CT abdomen and pelvis was performed, after the administration of IV contrast, as [facility]. Axial, sagittal and coronal reconstructions were obtained. One or more of the following dose reduction techniques were used: Automated exposure control, adjustment of the mA and/o r kV according to patient size, and/or iterative reconstruction. Unless otherwise specified, incidental findings do not require dedicated imaging follow-up. [id number]. COMPARISON: No prior exam. FINDINGS: LOWER CHEST: The visualized lung bases are clear. Coronary calcifications. Lower paraesophageal varic es are present. UPPER GI: No significant abnormality. LIVER: Cirrhotic liver morphology. No focal mass. GALLBLADDER/BILE DUCTS: Cholelithiasis without CT evidence of acute cholecystitis.? PANCREAS: No mass, ductal dilation, or elgin-pancreatic fluid. SPLEEN: Splenomegaly. ADRENALS: Normal; no mass. KIDNEYS AND URETERS: Normal size and contour. No hydronephrosis.No suspicious renal mass. ABDOMINAL AORTA AND OTHER VESSELS: Mild atherosclerotic changes. PERITONEUM: Mild pelvic free fluid. LYMPH NODES: Enlarged portacaval lymph nodes likely related to underlying liver disease. ABDOMINAL WALL: No significant abnormality. SMALL BOWEL/COLON: Small bowel has normal course and caliber. No colonic wall thickening or pericolon ic inflammatory changes.Normal appendix. URINARY BLADDER: Underdistended but grossly unremarkable. REPRODUCTIVE ORGANS: No pathologic process. MUSCULOSKELETAL: No acute or suspicious osseous abnormality. L5-S1 fusion. ADDITIONAL FINDINGS: None. IMPRESSION: No acute or significant abnormalities in the abdomen or pelvis. Cirrhosis with evidence of portal hypertension including splenomegaly and lower paraesophageal varice s.
[2024-05-26] MEDS ORDERED: HYDROCODONE/APAP 7.5/325 MG TAB ONE (10:25)
--- NOTE | 2024-05-26 10:34 | EDPHYS ---
Physician Documentation [facility] Name: Kelsi Bejarano Age: 63 yrs Sex: Female : 1960 Arrival Date: 05/26/2024 Time: 08:19 Bed 15 Private MD: ED Physician Silverio Cruz HPI: 05/26 08:35 This 63 yrs old Female presents to ER via Ambulatory with complaints of ec2 Nausea, Fever, Dizziness. 08:35 Patient arrives today for evaluation of nausea and vomiting. Patient reports that she ec2 has been feeling unwell since early this morning. Patient reports no cough or cold symptoms, denies urinary complaints. Reports some mild upper abdominal pain. History of otherwise no other abdominal surgeries.. Historical: - Allergies: 08:30 buspirone; hb 08:30 Cortisone; hb 08:30 PENICILLINS; hb 08:30 Hydralazine; hb - PMHx: 08:30 Back pain; Hypertension; [place]; hb - PSHx: 08:30 Neck ([place]); hb - Immunization history:: Adult Immunizations up to date. - Infectious Disease History:: Denies. - Social history:: Smoking status: Patient denies any tobacco usage or history of. ROS: 08:35 Constitutional: as per hpi ec2 Exam: 08:35 Constitutional: GEN: NAD Head: atraumatic Eyes: EOMI Ears: External ears are ec2 normal. CV: Tachycardia LUNGS: no respiratory distress ABD: non-distended, soft, obese, tender in the epigastrium, not guarding, not rigid SKIN: no evidence of rashes MSK: no evidence of trauma Vital Signs: 08:28 BP 131 / 69; Pulse 125; Resp 20; Temp 99.7(O); Pulse Ox 97% on R/A; Weight 99 kg (M); rs5 Height 5 ft. 6 in. ; Pain 0/10; 09:21 BP 147 / 129; Pulse 113; ec2 09:22 BP 151 / 79; Pulse 111; Resp 19; Pulse Ox 95% on R/A; rs5 09:30 Pulse 108; ec2 10:10 Pulse 105; ec2 10:44 BP 145 / 81; Pulse 88; Resp 17; Pulse Ox 99% on R/A; rs5 08:28 Body Mass Index 35.23 (99.00 kg, 167.64 cm) rs5 08:28 Pain Scale: Adult rs5 MDM: 08:27 Medical Screening Exam initiated ec2 08:36 Data reviewed: vital signs, nurses notes. ED course: Patient arrives today for ec2 evaluation of nausea and vomiting. Examination is remarkable for tachycardic individual with slight abdominal TTP. Will obtain lab work, CT imaging as well as chest x-ray.. 09:09 ED course: EKG independently reviewed and interpreted by me, shows sinus tachycardia, ec2 rate 123, no acute ST segment elevations, intervals are nonactionable.. 10:31 ED course: CBC with no anemia appreciated, metabolic profile is nonactionable, slight ec2 T. bili elevation. Urine is noninfectious appearing. CT of the head shows questionable age-indeterminate stroke. CT abdomen pelvis shows cirrhosis with portal hypertension and splenomegaly with paraesophageal varices. Will give the patient Protonix push and drip. Will give the patient ceftriaxone empirically. Will transfer for GI capable facility and further stroke workup.. 10:50 ED course: I discussed admitting and transferring the patient for emergent endoscopy ec2 and colonoscopy to evaluate for source of bleeding and for additional workup for stroke. Patient states that she did not want to be admitted to the hospital. I instructed her that this is potentially life-threatening situation where she could exsanguinate and and she expressed understanding regarding the risks and benefits. 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 I instructed her it is imperative that she undergo additional endoscopy however she declined at this time and states that she needs to return back to her home in [place]. Patient will be discharged however is leaving against my recommendation.. 05/26 08:33 Order name: Blood Culture Adult (2) ec2 05/26 08:33 Order name: CBC with Diff; Complete Time: 10:10 ec2 05/26 08:33 Order name: CMP; Complete Time: 09:29 ec2 05/26 08:33 Order name: Lactate w/ 2H reflex if indic.; Complete Time: 09:29 ec2 05/26 08:33 Order name: Protime (+inr); Complete Time: 09:13 ec2 05/26 08:33 Order name: Ptt, Activated; Complete Time: 09:13 ec2 05/26 08:33 Order name: Urinalysis w/ reflexes; Complete Time: 09:33 ec2 05/26 08:33 Order name: Influenza Screen (a \T\ B); Complete Time: 09:33 ec2 05/26 08:33 Order name: SARS RAPID; Complete Time: 09:33 ec2 05/26 09:29 Order name: Ghost Lactate-NO COLLECT Timer; Complete Time: 11:32 EDMS 05/26 10:05 Order name: Manual Differential; Complete Time: 10:10 EDMS 05/26 10:34 Order name: Type And Screen ec2 05/26 08:33 Order name: CXR XRAY; Complete Time: 09:25 ec2 05/26 08:33 Order name: CT Abd/Pelvis - IV Contrast Only; Complete Time: 10:30 ec2 05/26 09:23 Order name: CT Neck Angio; Complete Time: 10:23 ec2 05/26 09:23 Order name: CT Head Angio; Complete Time: 10:23 ec2 05/26 09:23 Order name: CT Head Brain wo Cont; Complete Time: 10:23 ec2 05/26 08:33 Order name: Accucheck; Complete Time: 09:02 ec2 05/26 08:33 Order name: Cardiac monitoring; Complete Time: 09:03 ec2 05/26 08:33 Order name: Cath; Complete Time: 09:03 ec2 05/26 08:33 Order name: EKG - Nurse/Tech; Complete Time: 09:02 ec2 05/26 08:33 Order name: IV Saline Lock - Large Bore; Complete Time: 09:02 ec2 05/26 08:33 Order name: Labs collected and sent; Complete Time: 09:02 ec2 05/26 08:33 Order name: O2 Per Protocol; Complete Time: 09:02 ec2 05/26 08:33 Order name: O2 Sat Monitoring; Complete Time: 09:02 ec2 05/26 08:33 Order name: Vital Signs; Complete Time: 09:02 ec2 05/26 09:27 Order name: Misc. Order: total 3L IVF ; Complete Time: 09:32 ec2 Administered Medications: 08:34 CANCELLED (Physician Discretion): [id number] mg IVP once ec2 09:02 Drug: metoCLOPramide IVP 10 mg IVP once; over 1 to 2 minutes Route: IVP; Site: left rs5 antecubital; 09:20 Follow up: Response: No adverse reaction; Nausea is decreased rs5 09:02 Drug: NS 0.9% IV 1000 ml IV at 1 bolus Per protocol; to be given as a bolus over 60 rs5 minutes Route: IV; Rate: 1 bolus; Site: left antecubital; 10:05 Follow up: Response: No adverse reaction; IV Status: Completed infusion; IV Intake: rs5 999ml 09:02 Drug: diphenhydrAMINE IVP 50 mg IVP once Route: IVP; Site: left antecubital; rs5 09:20 Follow up: Response: No adverse reaction rs5 09:42 Drug: NS 0.9% IV 2000 ml IV at 2 bolus Per protocol; to be given as a bolus over 60 rs5 minutes Route: IV; Rate: 2 bolus; Site: left antecubital; 10:48 Follow up: Response: No adverse reaction; IV Status: IV converted to saline lock; IV rs5 Intake: 1200ml 10:28 Drug: Hydrocodone-Acetaminophen PO (7.5 mg-325 mg) 1 tabs PO once Route: PO; rs5 10:50 CANCELLED (Patient Refused): [id number] mg IVP once ec2 10:50 CANCELLED (Patient Refused): [email or web address] mg/hr IV at 25 ml/hr continuous; (Standard ec2 dilution is 80 mg in 250 mL NS) 10:50 CANCELLED (Physician Discretion): [email or web address] grams IV at calculated rate once; Given ec2 slow IV push per pharmacy instructions 10:50 CANCELLED (Physician Discretion): [id number] mcg IV at bolus once ec2 Disposition Summary: 05/26/24 10:52 Discharge Ordered Notes: Location: Home ec2 Condition: Stable(05/26/24 10:52) ec2 Diagnosis - GI Bleed/ Gastrointestinal hemorrhage, unspecified(05/26/24 10:52) ec2 - Rectal Bleeding ec2 - Esophageal Varicies, Cirrhosis ec2 Followup: ec2 - With: Private Physician - When: - Reason: Recheck today's complaints Discharge Instructions: - Discharge Summary Sheet ec2 - Gastrointestinal Bleeding ec2 Forms: - Medication Reconciliation Form ec2 - Antibiotic Education ec2 - Prescription Opioid Use ec2 - Patient Portal Instructions ec2 - Leadership Thank You Letter ec2 Prescriptions: - Protonix 40 mg Oral Tablet - take 1 tablet ORAL route once daily; 30 tablet; Refills: 0, Product Selection ec2 Permitted Critical care time excluding procedures: 10:32 Critical care time: Bedside Care: 30 minutes, Consultation: 5 minutes. Total time: 35 ec2 minutes Signatures: Dispatcher [employer] EDMS Waldo Sesay, THREAD SPINNER-C THREAD SPINNER-Cla1 Caty Juares RN RN Andrzej Lakhani RN RN rs5 Silverio Cruz MD MD ec2 Corrections: (The following items were deleted from the chart) 08:34 08:33 diphenhydrAMINE IVP 25 mg IVP once ordered. ec2 ec2 08:34 08:34 BLOOD CULTURE*+BA.LAB.BRZ ordered. EDMS EDMS 08:34 08:34 CBC+H.LAB.BRZ ordered. EDMS EDMS 08:34 08:34 COMPREHENSIVE METABOLIC PANEL+C.LAB.BRZ ordered. EDMS EDMS 08:34 08:34 LACTATE+C.LAB.BRZ ordered. EDMS EDMS 08:34 08:34 PROTIME (+INR)+COAG.LAB.BRZ ordered. EDMS EDMS 08:34 08:34 PTT, ACTIVATED+COAG.LAB.BRZ ordered. EDMS EDMS 08:34 08:34 Urinalysis+U.LAB.BRZ ordered. EDMS EDMS 08:34 08:34 Influenza Screen (A \T\ B)+BA.LAB.BRZ ordered. EDMS EDMS 08:34 08:34 SARS-COV-2 Antigen Rapid+I.LAB.BRZ ordered. EDMS EDMS 08:34 08:34 Chest Single View+RAD.RAD.BRZ ordered. EDMS EDMS 08:34 08:34 Abdomen Pelvis W Con+CT.RAD.BRZ ordered. EDMS EDMS 09:24 09:24 Neck Angio+CT.RAD.BRZ ordered. EDMS EDMS 09:24 09:24 Head Angio+CT.RAD.BRZ ordered. EDMS EDMS 09:24 09:24 Head Brain Wo Cont+CT.RAD.BRZ ordered. EDMS EDMS 10:34 10:33 transferring doc ec2 ec2 10:50 10:30 Pantoprazole IVP 80 mg IVP once ordered. ec2 ec2 10:50 10:30 Pantoprazole IV 8 mg/hr IV at 25 ml/hr continuous; (Standard dilution is 80 mg in ec2 250 mL NS) ordered. ec2 10:50 10:32 Rocephin IV 1 grams IV at calculated rate once; Given slow IV push per pharmacy ec2 instructions ordered. ec2 10:50 10:32 Octreotide IV 50 mcg IV at bolus once ordered. ec2 ec2 10: 10:33 Other Acute Care Facility ec2 ec2 10:52 10:33 Higher level of care ec2 ec2 10: 10:33 Stable ec2 ec2 10: 10:33 new ec2 ec2 10: 10:33 have improved ec2 ec2 10: 10:33 GI Bleed/ Gastrointestinal hemorrhage, unspecified ec2 ec2 10:52 10:33 Rectal Bleeding, Esophageal Varicies ec2 ec2 10:52 10:34 transferring doc ec2 ec2 10: 10:34 Age Indeterminate Left Basal Ganglia Infarct ec2 ec2
--- NOTE | 2024-05-26 10:34 | ER ---
Nurse's Notes [facility] Name: Kelsi Bejarano Age: 63 yrs Sex: Female : 1960 Arrival Date: 05/26/2024 Time: 08:19 Bed 15 Private MD: Diagnosis: GI Bleed/ Gastrointestinal hemorrhage, unspecified;Rectal Bleeding;Esophageal Varicies, Cirrhosis Presentation: 05/26 08:28 Chief complaint: Shakiness and nausea since 0300, bright red blood in stool this hb morning. Coronavirus screen: Client presents with at least one sign or symptom that may indicate coronavirus-19. Provider contacted for isolation considerations. Ebola Screen: No symptoms or risks identified at this time. Initial Sepsis Screen: Does the patient meet any 2 criteria? No. Patient's initial sepsis screen is negative. Does the patient have a suspected source of infection? No. Patient's initial sepsis screen is negative. Risk Assessment: Do you want to hurt yourself or someone else? Patient reports no desire to harm self or others. Onset of symptoms was May 26, 2024. 08:28 Method Of Arrival: Ambulatory hb 08:28 Acuity: KATY 3 hb Historical: - Allergies: 08:30 buspirone; hb 08:30 Cortisone; hb 08:30 PENICILLINS; hb 08:30 Hydralazine; hb - PMHx: 08:30 Back pain; Hypertension; [place]; hb - PSHx: 08:30 Neck ([place]); hb - Immunization history:: Adult Immunizations up to date. - Infectious Disease History:: Denies. - Social history:: Smoking status: Patient denies any tobacco usage or history of. Screenin:31 [facility] ED Fall Risk Assessment (Adult) History of falling in the last 3 months, rs5 including since admission No falls in past 3 months (0 pts) Confusion or Disorientation No (0 pts) Intoxicated or Sedated No (0 pts) Impaired Gait Yes (1 pt) Mobility Assist Device Used Yes (1 pt) Altered Elimination No (0 pt) Score/Fall Risk Level 0 - 2 = Low Risk Oriented to surroundings, Maintained a safe environment. [facility] ED Fall Risk Assessment (Adult) History of falling in the last 3 months, including since admission. Abuse screen: Denies threats or abuse. Nutritional screening: No deficits noted. Tuberculosis screening: No symptoms or risk factors identified. Assessment: 08:22 General: Appears distressed, uncomfortable, Behavior is cooperative, anxious. rs5 08:22 Pain: Complains of pain in abdomen Pain currently is 8 out of 10 on a pain scale. rs5 Quality of pain is described as aching, Is continuous. Neuro: Level of Consciousness is awake, alert, obeys commands, Oriented to person, place, time, situation, Reports dizziness. Cardiovascular: Patient's skin is warm and dry. Respiratory: Airway is patent Respiratory effort is even, unlabored, Respiratory pattern is regular, symmetrical. GI: Abdomen is round non-distended, Abd is soft and non tender X 4 quads. Reports nausea. : No signs and/or symptoms were reported regarding the genitourinary system. EENT: No signs and/or symptoms were reported regarding the EENT system. Derm: Skin is intact, Skin is pink, warm \T\ dry. Musculoskeletal: Range of motion: intact in all extremities. 09:34 Reassessment: Patient and/or family updated on plan of care and expected duration. Pain rs5 level reassessed. Patient is alert, oriented x 3, equal unlabored respirations, skin warm/dry/pink. 10:40 Reassessment: to bedside for med adm. rs5 10:45 Reassessment: medications canceled by provider, provider notified meds were adm prior rs5 to cancellation . 10:48 Reassessment: Patient and/or family updated on plan of care and expected duration. Pain rs5 level reassessed. Patient is alert, oriented x 3, equal unlabored respirations, skin warm/dry/pink. Neuro: Denies dizziness. Vital Signs: 08:28 BP 131 / 69; Pulse 125; Resp 20; Temp 99.7(O); Pulse Ox 97% on R/A; Weight 99 kg (M); rs5 Height 5 ft. 6 in. ; Pain 0/10; 09:21 BP 147 / 129; Pulse 113; ec2 09:22 BP 151 / 79; Pulse 111; Resp 19; Pulse Ox 95% on R/A; rs5 09:30 Pulse 108; ec2 10:10 Pulse 105; ec2 10:44 BP 145 / 81; Pulse 88; Resp 17; Pulse Ox 99% on R/A; rs5 08:28 Body Mass Index 35.23 (99.00 kg, 167.64 cm) rs5 08:28 Pain Scale: Adult rs5 ED Course: 08:20 Patient arrived in ED. im 08:22 Silverio Cruz MD is Attending Physician. ec2 08:22 Inserted saline lock: 20 gauge in left antecubital area, using aseptic technique. Blood rs5 collected. Flushed with 10 mL NS. 08:29 Triage completed. hb 08:30 Andrzej Lakhani, JOHN is Primary Nurse. rs5 08:31 Arm band placed on. hb 08:31 Patient has correct armband on for positive identification. Placed in gown. Bed in low rs5 position. Call light in reach. Side rails up X2. 08:31 No provider procedures requiring assistance completed. rs5 09:21 CXR XRAY In Process Unspecified. EDMS 10:12 CT Abd/Pelvis - IV Contrast Only In Process Unspecified. EDMS 10:13 CT Neck Angio In Process Unspecified. EDMS 10:13 CT Head Angio In Process Unspecified. EDMS 10:14 CT Head Brain wo Cont In Process Unspecified. EDMS 10:44 IV discontinued, intact, bleeding controlled, No redness/swelling at site. Pressure rs5 dressing applied. 10:45 Provided Education on: discharge instructions . rs5 Administered Medications: 08:34 CANCELLED (Physician Discretion): [id number] mg IVP once ec2 09:02 Drug: metoCLOPramide IVP 10 mg IVP once; over 1 to 2 minutes Route: IVP; Site: left rs5 antecubital; 09:20 Follow up: Response: No adverse reaction; Nausea is decreased rs5 09:02 Drug: NS 0.9% IV 1000 ml IV at 1 bolus Per protocol; to be given as a bolus over 60 rs5 minutes Route: IV; Rate: 1 bolus; Site: left antecubital; 10:05 Follow up: Response: No adverse reaction; IV Status: Completed infusion; IV Intake: rs5 999ml 09:02 Drug: diphenhydrAMINE IVP 50 mg IVP once Route: IVP; Site: left antecubital; rs5 09:20 Follow up: Response: No adverse reaction rs5 09:42 Drug: NS 0.9% IV 2000 ml IV at 2 bolus Per protocol; to be given as a bolus over 60 rs5 minutes Route: IV; Rate: 2 bolus; Site: left antecubital; 10:48 Follow up: Response: No adverse reaction; IV Status: IV converted to saline lock; IV rs5 Intake: 1200ml 10:28 Drug: Hydrocodone-Acetaminophen PO (7.5 mg-325 mg) 1 tabs PO once Route: PO; rs5 10:50 CANCELLED (Patient Refused): [id number] mg IVP once ec2 10:50 CANCELLED (Patient Refused): pantoprazole8 mg/hr IV at 25 ml/hr continuous; (Standard ec2 dilution is 80 mg in 250 mL NS) 10:50 CANCELLED (Physician Discretion): [email or web address] grams IV at calculated rate once; Given ec2 slow IV push per pharmacy instructions 10:50 CANCELLED (Physician Discretion): [id number] mcg IV at bolus once ec2 Medication: 08:31 VIS not applicable for this client. rs5 Intake: 10:05 IV: 999ml; Total: 999ml. rs5 10:48 IV: 1200ml; Total: 2199ml. rs5 Outcome: 10:33 ER care complete, transfer ordered by MD. ec2 10:50 Discharged to home ambulatory, rs5 10:50 Condition: stable rs5 10:50 Discharge instructions given to patient, family, Instructed on discharge instructions, follow up and referral plans. medication usage, Demonstrated understanding of instructions, follow-up care, medications, Prescriptions given X 3, 10:52 Discharge ordered by MD. ec2 11:35 Patient left the ED. rs5 Signatures: Dispatcher [employer] EDMS Caty Juares RN RN Andrzej Lakhani RN RN rs5 Berna Sr Edwin, MD MD ec2 Corrections: (The following items were deleted from the chart) 09:04 08:28 BP 131 / 69; Pulse 125bpm; Resp 20bpm; Pulse Ox 97% RA; Temp 98.4F Oral; 99 kg rs5 Measured; Height 5 ft. 6 in.; BMI: 35.2; Pain 0/10, Adult; hb 09:23 09:22 BP 151 / 79; Pulse 125bpm; Resp 19bpm; Pulse Ox 95% RA; rs5 rs5 13:16 08:22 Neuro: Level of Consciousness is awake, alert, obeys commands, Oriented to rs5 person, place, time, situation, rs5
[2024-05-26] MEDS ORDERED: CEFTRIAXONE 1000 MG/VIAL ONE (10:47)
[2024-05-26] MEDS ORDERED: NA CHLORIDE 0.9% 250 ML ONE (10:48)
[2024-05-26] MEDS ORDERED: OCTREOTIDE ACETATE 100 MCG/ML ONE (10:48)
[2024-05-26] MEDS ORDERED: PANTOPRAZOLE 40 MG INJ ONE (10:48)
[2024-05-26 11:40] VITALS: TEMP 99.7
[2024-05-26 11:42] VITALS: BP 151/79; O2SAT 95
--- NOTE | 2024-05-29 11:19 | EKG ---
Test Date: 2024-05-26 Test Time: 09:03:27 Human Resources Officer: OFELIA MEASUREMENT RESULTS: Intervals: Rate: 123 MA: 162 QRSD: 84 QT: 308 QTc: 440 [place]: P: 62 MA: 162 QRS: -89 T: 71 INTERPRETIVE STATEMENTS: Sinus tachycardia Possible Left atrial enlargement Left axis deviation Low voltage QRS Inferior infarct, age undetermined Anterolateral infarct, age undetermined Abnormal ECG Compared to ECG 09/23/2018 20:26:43 Left-axis deviation now present Low QRS voltage now present Sinus rhythm no longer present Myocardial infarct finding still present Electronically Signed On 05-29-24 11:14:19 POWER SHOVEL ENGINEER by Bernardo Chopra
== END 2024-05-26 11:35 | disposition home or self-care (01) ==
LOC: ER 08:19
DX: K62.5 Hemorrhage of anus and rectum (principal); K74.60 Unspecified cirrhosis of liver; I85.10 Secondary esophageal varices without bleeding; Z11.52 Encounter for screening for COVID-19
CPT/HCPCS: 96361; 93005; 87040 ×2; 85025; 81001; 36415; 86900; 86850; 87205; 85610; 86901; 83605; 85730; 87077; 87186; 80053; 87804 ×2; 70450; 70496; 70498; 74177; 71045; 96375; 96374; 99284; 87811; Q9967; J2354; J2765; J1200; J2470; J7050; J7030 ×2; J0696